=== PATIENT | female | born 1980 | race Caucasian/White ===

== ENCOUNTER 2020-12-18 14:44 | Outpatient (CLI) | payer BC ==
--- NOTE | 2020-12-18 17:36 | ULT ---
TRANSABDOMINAL AND TRANSVAGINAL PELVIC ULTRASOUND: 12/18/20 INDICATION: History of irregular menstrual periods. TECHNIQUE: Ly scale, color Doppler with spectral Doppler images were obtained of the pelvis via a transabdomin al and transvaginal approach. FINDINGS: The uterus measures 8.1 x 4.1 x 4.9 cm. Endometrial stripe measures 5 mm. there are multiple small Na bothian cysts within the cervix. The right ovary measures 2.5 x 1.8 x 2 cm. left ovary measured 1.3 x 3.5 x 1.3 cm. There is a small 5 mm follicular cyst within the left ovary. There is a small 7 mm fol licular cyst within the right ovary. There is normal flow to both ovaries. No free fluid is evident. IMPRESSION: 1. No acute sonographic abnormality in the pelvis. 2. Nabothian cysts of the cervix. POS: BH
== END 2020-12-18 14:45 | disposition home or self-care (01) ==
LOC: BICULT 14:44
PROVIDERS: ATTEND Family Medicine
DX: N92.6 Irregular menstruation, unspecified (principal); N88.8 Other specified noninflammatory disorders of cervix uteri
CPT/HCPCS: 76856

== ENCOUNTER → 2023-04-10 | Day surgery (SDC) | payer BC ==
[~2023-04-10] MED LIST: Oxymetazoline HCl 0.05% (30 ML BOT) ONE
== END ==
LOC: SDC 12:39
PROVIDERS: ATTEND Surgery
DX: K21.9 Gastro-esophageal reflux disease without esophagitis (principal); K44.9 Diaphragmatic hernia without obstruction or gangrene; Z79.899 Other long term (current) drug therapy
CPT/HCPCS: 91010

== ENCOUNTER 2023-05-01 13:45 | Outpatient (CLI) | payer BC | END 2023-05-01 13:46 | disposition home or self-care (01) | LOC: SCSRAD 13:45 | PROVIDERS: ATTEND Family Medicine | DX: R06.2 Wheezing (principal); K44.9 Diaphragmatic hernia without obstruction or gangrene | CPT/HCPCS: 71046 ==

== ENCOUNTER 2023-05-12 06:00 | Inpatient (IN) | payer BC ==
[2023-05-12] MEDS ORDERED: Lidocaine 1% MPF 2 ML VIAL ONE (06:26)
[2023-05-12] MEDS ORDERED: CEFAZOLIN 2 GM VIAL ONE (06:26)
[2023-05-12] MEDS ORDERED: Sodium Chloride 0.9% 100 ML ONE (06:27)
[2023-05-12] MEDS ORDERED: SUGAMMADEX SODIUM 200 MG/2 ML VIAL ONE (06:50)
[2023-05-12] MEDS ORDERED: fentaNYL 50 mcg/mL 1 mL Vial ONE (06:50)
[2023-05-12] MEDS ORDERED: Famotidine/PF 20 mg/2ml Vial ONE (06:50)
[2023-05-12] MEDS ORDERED: Scopolamine 1.5 mg/72 hour Patch ONE (06:59)
[2023-05-12] MEDS ORDERED: EPINEPHrine 1 MG/ML AMP ONE (07:01)
[2023-05-12] MEDS ORDERED: Bupivacaine 0.25% HCL 30 ML VIAL ONE (07:01)
[2023-05-12] MEDS ORDERED: Ketorolac Tromethamine 30 MG/ML VIAL ONE (07:54)
[2023-05-12] MEDS ORDERED: Rocuronium Bromide 10 MG/ML (10ML VIAL) ONE (07:54)
[2023-05-12] MEDS ORDERED: Lidocaine 1% PF 5 ML VIAL ONE (07:54)
[2023-05-12] MEDS ORDERED: Dexamethasone 20 MG/5 ML VIAL ONE (07:54)
[2023-05-12] MEDS ORDERED: PROPOFOL 200 MG/20 ML VIAL ONE (07:54)
[2023-05-12] MEDS ORDERED: Ondansetron PF 4 MG/2 ML Vial ONE (07:54)
[2023-05-12] MEDS ORDERED: hydrALAZINE 20 MG/ML VIAL SLOW IVP PRN (09:59)
[2023-05-12] MEDS ORDERED: diphenhydrAMINE 50 MG/ML VIAL IVP PRN (09:59)
[2023-05-12] MEDS ORDERED: Ondansetron PF 4 MG/2 ML Vial IVP PRN (09:59)
[2023-05-12] MEDS ORDERED: Dextrose 50% Abboject 50 ML SYRINGE SLOW IVP PRN (09:59)
[2023-05-12] MEDS ORDERED: Promethazine HCl 25 MG/ML VIAL IM PRN ×2 (09:59→10:07)
[2023-05-12] MEDS ORDERED: Morphine 4 MG/ML VIAL SLOW IVP PRN (09:59)
[2023-05-12] MEDS ORDERED: Morphine 2 MG/ML VIAL SLOW IVP PRN (09:59)
[2023-05-12] MEDS ORDERED: Ipratropium/Albuterol 3 ML NEB NEB PRN (09:59)
[2023-05-12] MEDS ORDERED: Dextrose 5% in Water 1,000 ML IV PRN (09:59)
[2023-05-12] MEDS ORDERED: Glucagon 1 MG/ML KIT IM PRN (09:59)
[2023-05-12] MEDS ORDERED: Ondansetron HCl/PF 4 MG/2 ML Vial IVP PRN (10:07)
[2023-05-12] MEDS ORDERED: Meperidine HCl/PF 25 MG/ML VIAL SLOW IVP PRN (10:07)
[2023-05-12 11:47] VITALS: BMI 37.0
[2023-05-12] MEDS: D5 1/2 NS w/20 mEq KCL 1,000 ML IV SCH ×3 (12:16→21:13)
[2023-05-12] MEDS: Ketorolac Tromethamine 30 MG/ML VIAL IVP SCH ×2 (12:16→17:36)
[2023-05-12] MEDS: Hydrocodone-Acetamin 15 ML UDCUP PO PRN ×2 (13:16→17:35)
[2023-05-12] MEDS: CEFAZOLIN 2 GM in Sodium Chloride 0.9% 100 ML IVPB SCH ×2 (14:33→22:15)
[2023-05-12] MEDS ORDERED: Simethicone Chewable 80 MG TAB PO PRN (17:52)
[2023-05-13] MEDS: Ketorolac Tromethamine 30 MG/ML VIAL IVP SCH ×2 (00:02→05:49)
[2023-05-13] MEDS: Hydrocodone-Acetamin 15 ML UDCUP PO PRN ×2 (04:13→15:29)
[2023-05-13] MEDS: D5 1/2 NS w/20 mEq KCL 1,000 ML IV SCH (05:53)
[2023-05-13 06:03] LABS: #Neutrophils 10.7 thou/uL (1.40-6.50); %Basophils 0.2 % (0.0-1.0); %Monocytes 7.3 % (0.0-10.0); Mean Corpuscular HGB CONC 33.1 g/dL (32.0-36.0); Mean Corpuscular Hemoglobin 28.3 pg (27.0-31.0); Mean Corpuscular Volume 85.4 fl (78.0-98.0); Mean Platelet Volume 9.8 fL (7.4-10.4); Platelet Count 261 10x3/uL (130-400); RBC Distribution Width 12.4 % (11.5-14.5); Red Blood Cell (RBC) Count 4.24 mill/uL (4.20-5.40); White Blood Cell (WBC) Count 13.1 10x3/uL (4.8-10.8)
[2023-05-13 06:24] LABS: Anion Gap 11 mmol/L (10-20); BUN (Urea Nitrogen) 7 mg/dL (7.0-18.7); Calc. Creatinine Clearance 144 mL/min (70-130); Calcium 8.7 mg/dL (7.8-10.44); Carbon Dioxide 21 mmol/L (22-29); Chloride 108 mmol/L (98-107); Estimated GFR 97; Glucose 121 mg/dL (70-105); Potassium 4.4 mmol/L (3.5-5.1); Sodium 136 mmol/L (136-145)
[2023-05-13 08:26] VITALS: TEMP 97.7
[2023-05-13] MEDS ORDERED: Pantoprazole 40 MG VIAL IVP SCH (09:00)
[2023-05-13 13:53] VITALS: BP 120/75
== END 2023-05-13 15:40 | disposition home or self-care (01) | DRG 328 ==
LOC: SDC 06:00 → SURG B 09:59
PROVIDERS: ADMIT Surgery; ATTEND Surgery
PROC: 0BQT4ZZ Repair Diaphragm, Percutaneous Endoscopic Approach (ICD-10-PCS; principal; 2023-05-12)
PROC: 0DV44ZZ Restriction of Esophagogastric Junction, Percutaneous Endoscopic Approach (ICD-10-PCS; 2023-05-12)
PROC: 8E0W4CZ Robotic Assisted Procedure of Trunk Region, Percutaneous Endoscopic Approach (ICD-10-PCS; 2023-05-12)
DX: K44.9 Diaphragmatic hernia without obstruction or gangrene (principal); R13.10 Dysphagia, unspecified; K21.9 Gastro-esophageal reflux disease without esophagitis; Z79.899 Other long term (current) drug therapy; Z79.51 Long term (current) use of inhaled steroids
CPT/HCPCS: 36415; 80048; 85025; C9113; J0171; J1100; J1650; J1885; J2405; J2704; J3010; J3480; J3490; S0020; S0028

== ENCOUNTER 2023-09-02 21:00 | Emergency (ER) | payer BC ==
[2023-09-02 21:46] LABS: #Basophils 0.1 thou/uL (0.0-0.2); #Eosinphils 0.3 thou/uL (0.0-0.7); #Monocytes 0.9 thou/uL (0.11-0.59); #Neutrophils 6.9 thou/uL (1.40-6.50); %Basophils 0.8 % (0.0-1.0); %Eosinophils 2.6 % (0.0-10.0); %Lymphocytes 22.8 % (21.0-51.0); %Monocytes 8.3 % (0.0-10.0); %Neutrophils 65.2 % (42.0-75.0); Hematocrit 42.7 % (36.0-47.0); Hemoglobin 14.3 g/dL (12.0-16.0); Mean Corpuscular HGB CONC 33.5 g/dL (32.0-36.0); Mean Corpuscular Hemoglobin 28.5 pg (27.0-31.0); Mean Corpuscular Volume 85.1 fl (78.0-98.0); Mean Platelet Volume 10.1 fL (7.4-10.4); Platelet Count 282 10x3/uL (130-400); RBC Distribution Width 12.2 % (11.5-14.5); Red Blood Cell (RBC) Count 5.02 mill/uL (4.20-5.40); White Blood Cell (WBC) Count 10.6 10x3/uL (4.8-10.8)
[2023-09-02 22:10] LABS: ALT (SGPT) 20 U/L (8-55); AST (SGOT) 20 U/L (5-34); Albumin 4.6 g/dL (3.5-5.0); Alkaline Phosphatase 82 U/L (40-110); Anion Gap 13 mmol/L (10-20); BUN (Urea Nitrogen) 14 mg/dL (7.0-18.7); Bilirubin, Total 0.6 mg/dL (0.2-1.2); Calc. Creatinine Clearance 0 mL/min (70-130); Calcium 9.6 mg/dL (7.8-10.44); Carbon Dioxide 24 mmol/L (22-29); Chloride 108 mmol/L (98-107); Estimated GFR 78; Globulin 3.1 g/dL (2.4-3.5); Glucose 102 mg/dL (70-105); Lipase 59 U/L (8-78); Potassium 4.1 mmol/L (3.5-5.1); Protein, Total 7.7 g/dL (6.0-8.3); Sodium 141 mmol/L (136-145)
[2023-09-02 23:02] LABS: Bilirubin Negative (Negative); Blood, Urine Negative (Negative); Clarity Clear (Clear); Glucose, Urine (Dipstick) Normal (Negative); Ketone, Urine Negative (Negative); Leukocyte Negative Leu/uL (Negative); Nitrite Negative (Negative); Protein, Urine (Dipstick) Negative (Neg-Trace); Specific Gravity, Urine 1.027 (1.002-1.036); Urobilinogen Normal mg/dL (Less than 2); pH, Urine 5.5 (5.0-9.0)
[2023-09-02 23:08] LABS: Pregnancy Test - Urine (BHCG) Negative (Negative); Pregu Control Background? CLEAR/WHITE (CLR/WHITE); Pregu Control Bar Appear? YES (CONTROL BAR); Specific Gravity 1.027 (1.002-1.036)
[2023-09-02 23:10] LABS: Bacteria/HPF 1+ HPF (None Seen); CAUTI Indications for Culture Pelvic or flank pain; Mucous/LPF Rare LPF (<2+); RBC/HPF 0-3 HPF (0-3); Squamous Epithelial 0-3 HPF (0-3); WBC/HPF 0-3 HPF (0-3)
[2023-09-02 23:13] LABS: Urine Culture Reflex No No
[2023-09-02] MEDS ORDERED: Morphine 4 MG/ML VIAL ONE (23:42)
[2023-09-02] MEDS ORDERED: Ondansetron PF 4 MG/2 ML Vial ONE (23:43)
[2023-09-02] MEDS ORDERED: Pantoprazole 40 MG VIAL ONE (23:43)
[2023-09-02] MEDS ORDERED: fentaNYL 50 mcg/mL 1 mL Vial ONE (23:57)
[2023-09-03] MEDS ORDERED: Iopamidol-370 76% 500 ML MDV (1 ML CHARGE) ONE (14:15)
== END 2023-09-03 02:42 | disposition home or self-care (01) ==
LOC: ERS 21:00
DX: K44.9 Diaphragmatic hernia without obstruction or gangrene (principal)
CPT/HCPCS: 36415; 74177; 80053; 81001; 81025; 83690; 85025; 96361; 96374; 96375; C9113; J2270; J2405; J3010; Q9967

== ENCOUNTER 2023-09-03 18:41 | Inpatient (IN) | payer BC ==
[2023-09-03] MEDS ORDERED: Ondansetron PF 4 MG/2 ML Vial ONE (20:22)
[2023-09-03 20:44] LABS: #Basophils 0.1 thou/uL (0.0-0.2); #Eosinphils 0.1 thou/uL (0.0-0.7); #Monocytes 0.7 thou/uL (0.11-0.59); #Neutrophils 8.9 thou/uL (1.40-6.50); %Basophils 0.5 % (0.0-1.0); %Eosinophils 0.7 % (0.0-10.0); %Lymphocytes 15.7 % (21.0-51.0); %Monocytes 6.1 % (0.0-10.0); %Neutrophils 76.7 % (42.0-75.0); Hemoglobin 15.5 g/dL (12.0-16.0); Mean Corpuscular HGB CONC 33.7 g/dL (32.0-36.0); Mean Corpuscular Hemoglobin 28.2 pg (27.0-31.0); Mean Corpuscular Volume 83.6 fl (78.0-98.0); Mean Platelet Volume 10.7 fL (7.4-10.4); Platelet Count 275 10x3/uL (130-400); RBC Distribution Width 12.1 % (11.5-14.5); White Blood Cell (WBC) Count 11.6 10x3/uL (4.8-10.8)
[2023-09-03 21:53] LABS: Albumin 4.6 g/dL (3.5-5.0)
[2023-09-03 21:54] LABS: Chloride 109 mmol/L (98-107); Potassium 4.1 mmol/L (3.5-5.1); Sodium 138 mmol/L (136-145)
[2023-09-03 21:55] LABS: Calcium 9.5 mg/dL (7.8-10.44); Glucose 85 mg/dL (70-105)
[2023-09-03 21:56] LABS: Globulin 3.1 g/dL (2.4-3.5); Protein, Total 7.7 g/dL (6.0-8.3)
[2023-09-03 21:57] LABS: Anion Gap 12 mmol/L (10-20); Carbon Dioxide 21 mmol/L (22-29)
[2023-09-03 21:58] LABS: Alkaline Phosphatase 84 U/L (40-110); Bilirubin, Total 0.8 mg/dL (0.2-1.2)
[2023-09-03 21:59] LABS: Calc. Creatinine Clearance 0 mL/min (70-130); Estimated GFR 100
[2023-09-03 22:00] LABS: BUN (Urea Nitrogen) 10 mg/dL (7.0-18.7)
[2023-09-03 22:01] LABS: ALT (SGPT) 18 U/L (8-55); AST (SGOT) 16 U/L (5-34)
[2023-09-03 22:02] LABS: Lipase 35 U/L (8-78)
[2023-09-03] MEDS ORDERED: Ketorolac Tromethamine 30 MG/ML VIAL ONE (22:20)
[2023-09-03] MEDS ORDERED: Pantoprazole 40 MG VIAL ONE (22:20)
[2023-09-03] MEDS ORDERED: Promethazine HCl 12.5 MG in Sodium Chloride 0.9% 50 ML IVPB PRN (22:32)
[2023-09-03] MEDS ORDERED: Ondansetron PF 4 MG/2 ML Vial IVP PRN (22:45)
[2023-09-03] MEDS ORDERED: Ondansetron ODT 4 MG TAB SL PRN (22:45)
[2023-09-04] MEDS: Sodium Chloride 0.9% 1,000 ML IV SCH ×6 (00:01→21:05)
[2023-09-04] MEDS ORDERED: CEFAZOLIN 2 GM in Sodium Chloride 0.9% 100 ML IVPB SCH (07:30)
[2023-09-04] MEDS ORDERED: Sodium Chloride 0.9% 500 ML IV SCH (07:30)
[2023-09-04] MEDS ORDERED: Midazolam HCl 2 mg/2 ml Vial ONE ×2 (11:43→11:45)
[2023-09-04] MEDS ORDERED: Dexmedetomidine 200 MCG/2 ML VIAL ONE (11:44)
[2023-09-04] MEDS ORDERED: fentaNYL PF 100 MCG/2 ML SYRINGE ONE ×3 (11:45→15:57)
[2023-09-04] MEDS ORDERED: HYDROmorphone 0.5 MG/0.5 ML SYRINGE ONE (11:45)
[2023-09-04] MEDS ORDERED: EPINEPHrine 1 MG/ML VIAL ONE (11:55)
[2023-09-04] MEDS ORDERED: Bupivacaine 0.25% HCL 30 ML VIAL ONE (11:55)
[2023-09-04] MEDS ORDERED: Sodium Chloride 0.9% 100 ML ONE (12:06)
[2023-09-04] MEDS ORDERED: CEFAZOLIN 2 GM VIAL ONE (12:06)
[2023-09-04] MEDS ORDERED: Ondansetron PF 4 MG/2 ML Vial ONE ×3 (12:15→16:13)
[2023-09-04] MEDS ORDERED: Dexamethasone 20 MG/5 ML VIAL ONE (12:15)
[2023-09-04] MEDS ORDERED: Vecuronium 10 MG VIAL ONE (12:15)
[2023-09-04] MEDS ORDERED: Lidocaine 1% PF 5 ML VIAL ONE (12:15)
[2023-09-04] MEDS ORDERED: PROPOFOL 200 MG/20 ML VIAL ONE (12:15)
[2023-09-04] MEDS ORDERED: Metoprolol Tartrate 5 MG/5 ML VIAL ONE (12:15)
[2023-09-04] MEDS ORDERED: Ketorolac Tromethamine 30 MG/ML VIAL ONE (12:15)
[2023-09-04] MEDS ORDERED: Rocuronium Bromide 10 MG/ML (10ML VIAL) ONE (12:15)
[2023-09-04] MEDS ORDERED: Albumin 5% 1,000 ML ONE (14:52)
[2023-09-04] MEDS ORDERED: SUGAMMADEX SODIUM 200 MG/2 ML VIAL ONE (15:56)
[2023-09-04] MEDS ORDERED: diphenhydrAMINE 50 MG/ML VIAL IVP PRN (17:02)
[2023-09-04] MEDS ORDERED: Ondansetron PF 4 MG/2 ML Vial IVP PRN (17:02)
[2023-09-04] MEDS ORDERED: Promethazine HCl 25 MG/ML VIAL IM PRN ×3 (17:02→17:37)
[2023-09-04] MEDS ORDERED: Naloxone HCl 0.4 mg/ml Vial IV PRN (17:02)
[2023-09-04] MEDS ORDERED: diphenhydrAMINE 50 MG/ML VIAL IM PRN (17:02)
[2023-09-04] MEDS ORDERED: HYDROmorphone 2 MG/ML VIAL SLOW IVP PRN (17:03)
[2023-09-04] MEDS ORDERED: Ondansetron HCl/PF 4 MG/2 ML Vial IVP PRN (17:03)
[2023-09-04] MEDS ORDERED: Meperidine HCl/PF 25 MG/ML VIAL SLOW IVP PRN (17:03)
[2023-09-04] MEDS ORDERED: Morphine Sulfate 2 MG/ML SYRINGE SLOW IVP PRN (17:03)
[2023-09-04] MEDS ORDERED: Communication Order-Pharmacy FS SCH (17:15)
[2023-09-04] MEDS ORDERED: hydrALAZINE 20 MG/ML VIAL SLOW IVP PRN (17:37)
[2023-09-04] MEDS ORDERED: Dextrose 5% in Water 1,000 ML IV PRN (17:37)
[2023-09-04] MEDS ORDERED: Glucagon 1 MG/ML KIT IM PRN (17:37)
[2023-09-04] MEDS ORDERED: Dextrose 50% Abboject 50 ML SYRINGE SLOW IVP PRN (17:37)
[2023-09-04 18:21] LABS: Mean Corpuscular HGB CONC 33.1 g/dL (32.0-36.0); Mean Corpuscular Hemoglobin 28.8 pg (27.0-31.0); Mean Platelet Volume 10.4 fL (7.4-10.4); Platelet Count 201 10x3/uL (130-400); RBC Distribution Width 11.9 % (11.5-14.5); Red Blood Cell (RBC) Count 3.58 mill/uL (4.20-5.40); White Blood Cell (WBC) Count 19.7 10x3/uL (4.8-10.8)
[2023-09-04 18:25] LABS: Hematocrit 31.1 % (36.0-47.0); Hemoglobin 10.3 g/dL (12.0-16.0)
[2023-09-04 18:26] LABS: Mean Corpuscular Volume 86.9 fl (78.0-98.0)
[2023-09-04] MEDS: Famotidine/PF 20 mg/2ml Vial SLOW IVP SCH (20:40)
[2023-09-05] MEDS: Sodium Chloride 0.9% 1,000 ML IV SCH ×3 (02:22→09:40)
[2023-09-05 05:01] LABS: #Basophils 0.1 thou/uL (0.0-0.2); #Monocytes 1.6 thou/uL (0.11-0.59); #Neutrophils 24.3 thou/uL (1.40-6.50); %Basophils 0.2 % (0.0-1.0); %Eosinophils 0.1 % (0.0-10.0); %Lymphocytes 3.5 % (21.0-51.0); %Monocytes 6.1 % (0.0-10.0); %Neutrophils 89.8 % (42.0-75.0); Hematocrit 28.5 % (36.0-47.0); Hemoglobin 9.3 g/dL (12.0-16.0); Mean Corpuscular HGB CONC 32.6 g/dL (32.0-36.0); Mean Corpuscular Hemoglobin 28.3 pg (27.0-31.0); Mean Corpuscular Volume 86.6 fl (78.0-98.0); Mean Platelet Volume 10.8 fL (7.4-10.4); Platelet Count 223 10x3/uL (130-400); RBC Distribution Width 12.2 % (11.5-14.5); Red Blood Cell (RBC) Count 3.29 mill/uL (4.20-5.40)
[2023-09-05 05:36] LABS: ALT (SGPT) 40 U/L (8-55); AST (SGOT) 48 U/L (5-34); Albumin 3.9 g/dL (3.5-5.0); Alkaline Phosphatase 46 U/L (40-110); Anion Gap 12 mmol/L (10-20); BUN (Urea Nitrogen) 10 mg/dL (7.0-18.7); Bilirubin, Total 1.3 mg/dL (0.2-1.2); Calc. Creatinine Clearance 146 mL/min (70-130); Calcium 7.9 mg/dL (7.8-10.44); Carbon Dioxide 21 mmol/L (22-29); Chloride 110 mmol/L (98-107); Estimated GFR 103; Globulin 1.7 g/dL (2.4-3.5); Glucose 132 mg/dL (70-105); Potassium 4.4 mmol/L (3.5-5.1); Protein, Total 5.6 g/dL (6.0-8.3); Sodium 139 mmol/L (136-145)
[2023-09-05] MEDS: HYDROmorphone/PF 10 MG in Sodium Chloride 0.9% 99 ML IV PRN (07:25)
[2023-09-05] MEDS ORDERED: PNEUMOC 20-VAL CONJ-DIP CRM/PF 0.5 ML SYRINGE IM ONE (07:33)
[2023-09-05] MEDS ORDERED: Mening Vac A,C,Y,W-135 Dip/PF (MENVEO) IM ONE (07:33)
[2023-09-05] MEDS ORDERED: Haemoph B Poly Conj-Tet Tox/PF 10 MCG/0.5 ML VIAL IM ONE (07:33)
[2023-09-05] MEDS ORDERED: Sodium Chloride 0.9% 500 ML IV SCH (07:45)
[2023-09-05] MEDS: Ondansetron PF 4 MG/2 ML Vial IVP PRN (08:23)
[2023-09-05] MEDS ORDERED: Piperacillin/Tazobactam 3.375 GM in Sodium Chloride 0.9% 100 ML IVPB SCH ×2 (10:00→10:30)
[2023-09-05] MEDS: Famotidine/PF 20 mg/2ml Vial SLOW IVP SCH ×2 (10:21→21:42)
[2023-09-05] MEDS ORDERED: Rocuronium Bromide 10 MG/ML (10ML VIAL) ONE ×2 (12:18→13:27)
[2023-09-05] MEDS ORDERED: Lidocaine 2% PF 5 ML VIAL ONE (12:18)
[2023-09-05] MEDS ORDERED: PROPOFOL 20 ML ONE (12:18)
[2023-09-05] MEDS ORDERED: Midazolam HCl 2 mg/2 ml Vial ONE (12:18)
[2023-09-05] MEDS ORDERED: Fentanyl 250 MCG/5 ML VIAL ONE (12:18)
[2023-09-05] MEDS ORDERED: Piperacillin/Tazobactam 3.375 GM VIAL ONE (13:06)
[2023-09-05] MEDS ORDERED: Sodium Chloride 0.9% 100 ML ONE (13:06)
[2023-09-05] MEDS ORDERED: PROPOFOL 200 MG/20 ML VIAL ONE (13:27)
[2023-09-05] MEDS ORDERED: Ondansetron PF 4 MG/2 ML Vial ONE (13:27)
[2023-09-05] MEDS ORDERED: Metoprolol Tartrate 5 MG/5 ML VIAL ONE ×2 (13:27→13:53)
[2023-09-05] MEDS ORDERED: Dexamethasone 20 MG/5 ML VIAL ONE (13:27)
[2023-09-05] MEDS ORDERED: Lidocaine 1% PF 5 ML VIAL ONE (13:27)
[2023-09-05] MEDS ORDERED: Ketamine In 0.9 % NaCl 50 MG/5 ML SYRINGE ONE (13:39)
[2023-09-05] MEDS ORDERED: Methylene Blue 50 MG/10 ML AMPUL ONE (14:00)
[2023-09-05] MEDS ORDERED: SUGAMMADEX SODIUM 200 MG/2 ML VIAL ONE ×2 (14:13→14:17)
[2023-09-05] MEDS ORDERED: Ondansetron HCl/PF 4 MG/2 ML Vial IVP PRN (14:23)
[2023-09-05] MEDS ORDERED: HYDROmorphone 2 MG/ML VIAL SLOW IVP PRN (14:23)
[2023-09-05] MEDS ORDERED: Promethazine HCl 25 MG/ML VIAL IM PRN (14:23)
[2023-09-05] MEDS ORDERED: HYDROmorphone 2 MG/ML VIAL ONE (15:17)
[2023-09-05] MEDS ORDERED: fentaNYL 50 mcg/mL 1 mL Vial ONE (16:19)
[2023-09-05] MEDS ORDERED: Metoprolol Tartrate 5 MG/5 ML VIAL IVP PRN (20:36)
[2023-09-05] MEDS ORDERED: Metoprolol Tartrate 5 MG/5 ML VIAL IVP SCH (20:45)
[2023-09-06] MEDS: Sodium Chloride 0.9% 1,000 ML IV SCH ×3 (00:05→17:14)
[2023-09-06] MEDS ORDERED: Electrolyte Replacement Protocol 1 EACH FS SCH (04:30)
[2023-09-06] MEDS: HYDROmorphone/PF 10 MG in Sodium Chloride 0.9% 99 ML IV PRN ×2 (04:30→15:53)
[2023-09-06] MEDS ORDERED: Metoprolol Tartrate 5 MG/5 ML VIAL IVP SCH ×2 (04:30→09:00)
[2023-09-06 04:35] LABS: Hematocrit 24.5 % (36.0-47.0); Hemoglobin 7.9 g/dL (12.0-16.0); Mean Corpuscular HGB CONC 32.2 g/dL (32.0-36.0); Mean Corpuscular Hemoglobin 28.7 pg (27.0-31.0); Mean Corpuscular Volume 89.1 fl (78.0-98.0); Mean Platelet Volume 10.6 fL (7.4-10.4); Platelet Count 254 10x3/uL (130-400); RBC Distribution Width 13.2 % (11.5-14.5); Red Blood Cell (RBC) Count 2.75 mill/uL (4.20-5.40)
[2023-09-06 04:47] LABS: Delete Auto Diff?? YES; Manual Diff?? YES
[2023-09-06 05:19] LABS: Anion Gap 10 mmol/L (10-20); BUN (Urea Nitrogen) 11 mg/dL (7.0-18.7); Calc. Creatinine Clearance 157 mL/min (70-130); Carbon Dioxide 21 mmol/L (22-29); Chloride 116 mmol/L (98-107); Estimated GFR 109; Glucose 95 mg/dL (70-105); Magnesium 1.8 mg/dL (1.6-2.6); Sodium 143 mmol/L (136-145)
[2023-09-06 06:32] LABS: Band 4 % (5-11); CellaVision Operator ID lab.sh2; Large Platelets 2.6 % (0-5); Lymphocytes 4 % (21-51); Neutrophil 92 % (42-75); Platelet Adequacy Comment Platelets Normal; Polychromasia SLIGHT = 2-3 cells HPF (0-2); Smudge Cells 4.3 %; Total Cell Count 116
[2023-09-06] MEDS ORDERED: Magnesium 2 GM/50 ML(in water) 2 GM in Premix 1 BAG IVPB SCH (08:00)
[2023-09-06] MEDS: Famotidine/PF 20 mg/2ml Vial SLOW IVP SCH ×2 (10:41→20:50)
[2023-09-06 12:32] LABS: Hematocrit 23.2 % (36.0-47.0); Hemoglobin 7.6 g/dL (12.0-16.0); Mean Corpuscular HGB CONC 32.8 g/dL (32.0-36.0); Mean Corpuscular Hemoglobin 29.6 pg (27.0-31.0); Mean Corpuscular Volume 90.3 fl (78.0-98.0); Mean Platelet Volume 10.2 fL (7.4-10.4); Platelet Count 266 10x3/uL (130-400); RBC Distribution Width 13.3 % (11.5-14.5); Red Blood Cell (RBC) Count 2.57 mill/uL (4.20-5.40); White Blood Cell (WBC) Count 30.2 10x3/uL (4.8-10.8)
[2023-09-06 12:35] LABS: Delete Auto Diff?? YES; Manual Diff?? YES
[2023-09-06 12:42] VITALS: BMI 35.9
[2023-09-06 13:02] LABS: Band 22 % (5-11); CellaVision Operator ID LAB.MJL; Lymphocytes 5 % (21-51); Monocytes 6 % (0-10); Neutrophil 67 % (42-75); Platelet Adequacy Comment Platelets Normal; Polychromasia SLIGHT = 2-3 cells HPF (0-2); Total Cell Count 101
[2023-09-06 14:30] LABS: Hematocrit 23.9 % (36.0-47.0); Hemoglobin 7.6 g/dL (12.0-16.0)
[2023-09-06] MEDS: Metoprolol Tartrate 5 MG/5 ML VIAL IVP SCH (17:54)
[2023-09-06] MEDS: Piperacillin/Tazobactam 3.375 GM in Sodium Chloride 0.9% 100 ML IVPB SCH (18:06)
[2023-09-06] MEDS: D5W-AA 4.25% with LYTES 1,000 ML IV SCH (18:43)
[2023-09-06 19:14] LABS: Hematocrit 27.3 % (36.0-47.0)
[2023-09-07] MEDS: Metoprolol Tartrate 5 MG/5 ML VIAL IVP SCH ×5 (00:28→21:34)
[2023-09-07 01:17] LABS: Hematocrit 28.7 % (36.0-47.0); Hemoglobin 8.9 g/dL (12.0-16.0)
[2023-09-07] MEDS: Ipratropium/Albuterol 3 ML NEB NEB PRN ×2 (03:00→11:50)
[2023-09-07] MEDS: Piperacillin/Tazobactam 3.375 GM in Sodium Chloride 0.9% 100 ML IVPB SCH ×3 (03:12→17:19)
[2023-09-07] MEDS: D5W-AA 4.25% with LYTES 1,000 ML IV SCH ×4 (04:59→21:47)
[2023-09-07 07:03] LABS: Hematocrit 24.3 % (36.0-47.0)
[2023-09-07] MEDS: HYDROmorphone/PF 10 MG in Sodium Chloride 0.9% 99 ML IV PRN ×2 (07:58→22:52)
[2023-09-07] MEDS ORDERED: Furosemide 100 MG in Sodium Chloride 0.9% 90 ML IVPB SCH (08:00)
[2023-09-07] MEDS ORDERED: Furosemide 100 MG, Admixture Fee 1 EACH in Sodium Chloride 0.9% 90 ML IVPB SCH (08:15)
[2023-09-07] MEDS ORDERED: Metoprolol Tartrate 5 MG/5 ML VIAL IVP SCH (08:22)
[2023-09-07] MEDS: Famotidine/PF 20 mg/2ml Vial SLOW IVP SCH ×2 (09:12→21:34)
[2023-09-07 12:55] LABS: Hematocrit 25.3 % (36.0-47.0); Hemoglobin 8.2 g/dL (12.0-16.0)
[2023-09-07] MEDS ORDERED: Furosemide 20 MG/2 ML VIAL SLOW IVP SCH (13:45)
[2023-09-07 20:46] LABS: Hematocrit 24.3 % (36.0-47.0)
[2023-09-07] MEDS: Sodium Chloride 0.9% 1,000 ML IV SCH (21:33)
[2023-09-08] MEDS: Piperacillin/Tazobactam 3.375 GM in Sodium Chloride 0.9% 100 ML IVPB SCH ×3 (03:19→18:00)
[2023-09-08] MEDS: Metoprolol Tartrate 5 MG/5 ML VIAL IVP SCH ×2 (03:19→09:56)
[2023-09-08 04:14] LABS: #Basophils 0.1 thou/uL (0.0-0.2); #Eosinphils 0.4 thou/uL (0.0-0.7); #Neutrophils 18.2 thou/uL (1.40-6.50); %Basophils 0.4 % (0.0-1.0); %Eosinophils 1.5 % (0.0-10.0); %Monocytes 8.7 % (0.0-10.0); %Neutrophils 78.5 % (42.0-75.0); Hematocrit 26.1 % (36.0-47.0); Hemoglobin 8.5 g/dL (12.0-16.0); Mean Corpuscular HGB CONC 32.6 g/dL (32.0-36.0); Mean Corpuscular Hemoglobin 28.8 pg (27.0-31.0); Mean Corpuscular Volume 88.5 fl (78.0-98.0); Mean Platelet Volume 9.9 fL (7.4-10.4); Platelet Count 399 10x3/uL (130-400); RBC Distribution Width 13.5 % (11.5-14.5); Red Blood Cell (RBC) Count 2.95 mill/uL (4.20-5.40); White Blood Cell (WBC) Count 23.2 10x3/uL (4.8-10.8)
[2023-09-08 04:46] LABS: Anion Gap 14 mmol/L (10-20); BUN (Urea Nitrogen) 12 mg/dL (7.0-18.7); Calc. Creatinine Clearance 184 mL/min (70-130); Calcium 8.3 mg/dL (7.8-10.44); Carbon Dioxide 25 mmol/L (22-29); Chloride 107 mmol/L (98-107); Estimated GFR 114; Glucose 97 mg/dL (70-105); Potassium 3.1 mmol/L (3.5-5.1); Sodium 143 mmol/L (136-145)
[2023-09-08] MEDS: Potassium Chloride 20 MEQ in Premix 1 BAG IVPB SCH ×2 (08:13→09:57)
[2023-09-08] MEDS: Famotidine/PF 20 mg/2ml Vial SLOW IVP SCH ×2 (08:23→20:49)
[2023-09-08] MEDS: Ipratropium/Albuterol 3 ML NEB NEB PRN (10:33)
[2023-09-08] MEDS: D5W-AA 4.25% with LYTES 1,000 ML IV SCH ×3 (12:52→17:34)
[2023-09-08] MEDS ORDERED: Furosemide 20 MG TAB PO SCH (13:15)
[2023-09-08] MEDS: HYDROmorphone/PF 10 MG in Sodium Chloride 0.9% 99 ML IV PRN (15:30)
[2023-09-09] MEDS: Piperacillin/Tazobactam 3.375 GM in Sodium Chloride 0.9% 100 ML IVPB SCH ×3 (01:59→18:10)
[2023-09-09 04:40] LABS: #Basophils 0.2 thou/uL (0.0-0.2); #Eosinphils 0.7 thou/uL (0.0-0.7); #Monocytes 2.3 thou/uL (0.11-0.59); #Neutrophils 14.5 thou/uL (1.40-6.50); %Basophils 0.7 % (0.0-1.0); %Eosinophils 3.7 % (0.0-10.0); %Lymphocytes 10.8 % (21.0-51.0); %Monocytes 11.3 % (0.0-10.0); %Neutrophils 71.8 % (42.0-75.0); Hemoglobin 9.1 g/dL (12.0-16.0); Mean Corpuscular HGB CONC 32.5 g/dL (32.0-36.0); Mean Corpuscular Hemoglobin 28.6 pg (27.0-31.0); Mean Corpuscular Volume 88.1 fl (78.0-98.0); Mean Platelet Volume 9.7 fL (7.4-10.4); Platelet Count 462 10x3/uL (130-400); RBC Distribution Width 13.2 % (11.5-14.5); Red Blood Cell (RBC) Count 3.18 mill/uL (4.20-5.40); White Blood Cell (WBC) Count 20.2 10x3/uL (4.8-10.8)
[2023-09-09 05:00] LABS: Anion Gap 11 mmol/L (10-20); BUN (Urea Nitrogen) 7 mg/dL (7.0-18.7); Calc. Creatinine Clearance 187 mL/min (70-130); Calcium 8.3 mg/dL (7.8-10.44); Carbon Dioxide 27 mmol/L (22-29); Chloride 103 mmol/L (98-107); Estimated GFR 114; Glucose 88 mg/dL (70-105); Potassium 3.1 mmol/L (3.5-5.1); Sodium 138 mmol/L (136-145)
[2023-09-09] MEDS: Potassium Chloride 20 MEQ in Premix 1 BAG IVPB SCH ×2 (08:05→15:43)
[2023-09-09] MEDS: Famotidine/PF 20 mg/2ml Vial SLOW IVP SCH ×2 (08:06→20:29)
[2023-09-09] MEDS: HYDROmorphone/PF 10 MG in Sodium Chloride 0.9% 99 ML IV PRN (12:35)
[2023-09-09] MEDS ORDERED: Potassium Chloride 20 MEQ in Premix 1 BAG IVPB SCH (15:30)
[2023-09-09] MEDS: diphenhydrAMINE 25 MG CAP PO PRN (20:37)
[2023-09-10] MEDS: Piperacillin/Tazobactam 3.375 GM in Sodium Chloride 0.9% 100 ML IVPB SCH ×3 (02:08→17:44)
[2023-09-10] MEDS: HYDROmorphone/PF 10 MG in Sodium Chloride 0.9% 99 ML IV PRN ×2 (03:39→17:54)
[2023-09-10 06:40] LABS: Hematocrit 30.8 % (36.0-47.0); Hemoglobin 10.1 g/dL (12.0-16.0); Mean Corpuscular HGB CONC 32.8 g/dL (32.0-36.0); Mean Corpuscular Volume 88.5 fl (78.0-98.0); Mean Platelet Volume 9.7 fL (7.4-10.4); Platelet Count 584 10x3/uL (130-400); RBC Distribution Width 13.4 % (11.5-14.5); Red Blood Cell (RBC) Count 3.48 mill/uL (4.20-5.40); White Blood Cell (WBC) Count 23.3 10x3/uL (4.8-10.8)
[2023-09-10 07:09] LABS: ALT (SGPT) 58 U/L (8-55); AST (SGOT) 42 U/L (5-34); Albumin 3.4 g/dL (3.5-5.0); Alkaline Phosphatase 207 U/L (40-110); Anion Gap 17 mmol/L (10-20); BUN (Urea Nitrogen) 7 mg/dL (7.0-18.7); Bilirubin, Total 2.7 mg/dL (0.2-1.2); Calc. Creatinine Clearance 156 mL/min (70-130); Calcium 8.8 mg/dL (7.8-10.44); Carbon Dioxide 25 mmol/L (22-29); Chloride 100 mmol/L (98-107); Estimated GFR 109; Globulin 3.3 g/dL (2.4-3.5); Glucose 94 mg/dL (70-105); Potassium 3.5 mmol/L (3.5-5.1); Protein, Total 6.7 g/dL (6.0-8.3); Sodium 138 mmol/L (136-145)
[2023-09-10 07:38] LABS: Delete Auto Diff?? YES; Manual Diff?? YES
[2023-09-10] MEDS ORDERED: Potassium Bicarbonate/Cit Ac 20 MEQ TAB PO SCH (08:00)
[2023-09-10 08:56] LABS: Band 4 % (5-11); Eosinophils 1 % (0-10); Lymphocytes 5 % (21-51); Monocytes 6 % (0-10); Neutrophil 83 % (42-75); Nucleated RBC (Manual Ct) 5 % (0)
[2023-09-10 08:57] LABS: RBC Morph Comment Within Normal Limits
[2023-09-10 08:58] LABS: Platelet Adequacy Comment Appears Increased
[2023-09-10] MEDS: Famotidine/PF 20 mg/2ml Vial SLOW IVP SCH ×2 (09:39→20:21)
[2023-09-10] MEDS: diphenhydrAMINE 25 MG CAP PO PRN (11:43)
[2023-09-10 12:01] LABS: Potassium 3.7 mmol/L (3.5-5.1)
[2023-09-10] MEDS ORDERED: Metoprolol Tartrate 25 MG TAB PO SCH (19:15)
[2023-09-11] MEDS: Piperacillin/Tazobactam 3.375 GM in Sodium Chloride 0.9% 100 ML IVPB SCH ×3 (02:00→17:10)
[2023-09-11 05:10] LABS: Hematocrit 26.2 % (36.0-47.0); Hemoglobin 8.5 g/dL (12.0-16.0); Mean Corpuscular HGB CONC 32.4 g/dL (32.0-36.0); Mean Corpuscular Hemoglobin 28.8 pg (27.0-31.0); Mean Corpuscular Volume 88.8 fl (78.0-98.0); Mean Platelet Volume 9.8 fL (7.4-10.4); Platelet Count 556 10x3/uL (130-400); RBC Distribution Width 13.6 % (11.5-14.5); Red Blood Cell (RBC) Count 2.95 mill/uL (4.20-5.40)
[2023-09-11 05:20] LABS: Manual Diff?? YES
[2023-09-11 05:21] LABS: Delete Auto Diff?? YES
[2023-09-11 05:52] LABS: Band 1 % (5-11); CellaVision Operator ID lab.abc; Eosinophils 1 % (0-10); Large Platelets 2.9 % (0-5); Lymphocytes 3 % (21-51); Metamyelocyte 1 % (0-0); Monocytes 11 % (0-10); Myelocyte 2 % (0-0); Neutrophil 82 % (42-75); Nucleated RBC (Manual Ct) 2 % (0); Platelet Adequacy Comment Platelets Increased; Polychromasia MODERATE = 3-4 cells HPF (0-2); Smudge Cells 8.7 %; Total Cell Count 104
[2023-09-11 06:01] LABS: ALT (SGPT) 47 U/L (8-55); AST (SGOT) 38 U/L (5-34); Albumin 2.9 g/dL (3.5-5.0); Alkaline Phosphatase 193 U/L (40-110); Anion Gap 14 mmol/L (10-20); BUN (Urea Nitrogen) 7 mg/dL (7.0-18.7); Bilirubin, Total 1.8 mg/dL (0.2-1.2); Calc. Creatinine Clearance 166 mL/min (70-130); Calcium 8.3 mg/dL (7.8-10.44); Carbon Dioxide 26 mmol/L (22-29); Chloride 101 mmol/L (98-107); Estimated GFR 111; Glucose 97 mg/dL (70-105); Potassium 3.3 mmol/L (3.5-5.1); Protein, Total 5.9 g/dL (6.0-8.3); Sodium 138 mmol/L (136-145)
[2023-09-11] MEDS ORDERED: traMADol HCl 50 MG TAB PO PRN (08:55)
[2023-09-11] MEDS ORDERED: Morphine 2 MG/ML VIAL SLOW IVP PRN (08:57)
[2023-09-11] MEDS ORDERED: Potassium Chloride 20 MEQ TAB PO SCH (09:00)
[2023-09-11] MEDS: Famotidine/PF 20 mg/2ml Vial SLOW IVP SCH ×2 (09:20→21:57)
[2023-09-11] MEDS ORDERED: Iopamidol-370 76% 500 ML MDV (1 ML CHARGE) ONE (10:56)
[2023-09-11] MEDS: HYDROcodone/Acetaminophen 10/325 mg Tablet PO PRN ×4 (12:06→21:57)
[2023-09-12] MEDS: traMADol HCl 50 MG TAB PO PRN ×2 (02:20→16:55)
[2023-09-12] MEDS: Piperacillin/Tazobactam 3.375 GM in Sodium Chloride 0.9% 100 ML IVPB SCH ×3 (02:21→18:00)
[2023-09-12] MEDS: HYDROcodone/Acetaminophen 10/325 mg Tablet PO PRN ×4 (04:27→22:18)
[2023-09-12 05:23] LABS: Hematocrit 25.9 % (36.0-47.0); Hemoglobin 8.4 g/dL (12.0-16.0); Mean Corpuscular HGB CONC 32.4 g/dL (32.0-36.0); Mean Corpuscular Hemoglobin 28.9 pg (27.0-31.0); Mean Platelet Volume 9.9 fL (7.4-10.4); Platelet Count 669 10x3/uL (130-400); RBC Distribution Width 13.8 % (11.5-14.5); Red Blood Cell (RBC) Count 2.91 mill/uL (4.20-5.40); White Blood Cell (WBC) Count 25.2 10x3/uL (4.8-10.8)
[2023-09-12 06:08] LABS: Anion Gap 16 mmol/L (10-20); BUN (Urea Nitrogen) 5 mg/dL (7.0-18.7); Calc. Creatinine Clearance 166 mL/min (70-130); Calcium 8.4 mg/dL (7.8-10.44); Carbon Dioxide 24 mmol/L (22-29); Chloride 103 mmol/L (98-107); Estimated GFR 111; Glucose 85 mg/dL (70-105); Potassium 3.8 mmol/L (3.5-5.1); Sodium 139 mmol/L (136-145)
[2023-09-12 06:10] LABS: Delete Auto Diff?? YES; Manual Diff?? YES
[2023-09-12 07:16] LABS: Band 9 % (5-11); CellaVision Operator ID LAB.GE; Eosinophils 4 % (0-10); Hypochromia SLIGHT = 6-15 cells HPF (0-5); Large Platelets 1.7 % (0-5); Lymphocytes 3 % (21-51); Metamyelocyte 1 % (0-0); Monocytes 10 % (0-10); Myelocyte 1 % (0-0); Neutrophil 73 % (42-75); Nucleated RBC (Manual Ct) 3 % (0); Platelet Adequacy Comment Platelets Increased; Polychromasia MODERATE = 3-4 cells HPF (0-2); Total Cell Count 118
[2023-09-12] MEDS ORDERED: VANCO/ABX IVPB PRN (08:19)
[2023-09-12] MEDS ORDERED: Vancomycin 1 GM in Sodium Chloride 0.9% 250 ML 250 ML IVPB SCH (09:00)
[2023-09-12] MEDS: Famotidine/PF 20 mg/2ml Vial SLOW IVP SCH ×2 (09:12→20:31)
[2023-09-12] MEDS: Nystatin 500,000 UNITS/5 ML UDCUP SSW SCH ×4 (09:13→20:32)
[2023-09-12] MEDS: Vancomycin 1 GM in Premix 1 BAG IVPB SCH ×2 (10:16→17:04)
[2023-09-12] MEDS: Ondansetron PF 4 MG/2 ML Vial IVP PRN (16:59)
[2023-09-12] MEDS ORDERED: Morphine 4 MG/ML VIAL SLOW IVP PRN (17:16)
[2023-09-13] MEDS: Vancomycin 1 GM in Premix 1 BAG IVPB SCH (01:17)
[2023-09-13] MEDS: Piperacillin/Tazobactam 3.375 GM in Sodium Chloride 0.9% 100 ML IVPB SCH ×3 (02:23→18:33)
[2023-09-13] MEDS: HYDROcodone/Acetaminophen 10/325 mg Tablet PO PRN ×4 (04:11→22:42)
[2023-09-13 05:08] LABS: Hematocrit 27.9 % (36.0-47.0); Mean Corpuscular HGB CONC 32.3 g/dL (32.0-36.0); Mean Corpuscular Hemoglobin 28.9 pg (27.0-31.0); Mean Corpuscular Volume 89.7 fl (78.0-98.0); Mean Platelet Volume 9.7 fL (7.4-10.4); Platelet Count 761 10x3/uL (130-400); RBC Distribution Width 14.1 % (11.5-14.5); Red Blood Cell (RBC) Count 3.11 mill/uL (4.20-5.40); White Blood Cell (WBC) Count 30.2 10x3/uL (4.8-10.8)
[2023-09-13 05:11] LABS: Delete Auto Diff?? YES; Manual Diff?? YES
[2023-09-13 05:44] LABS: Anion Gap 16 mmol/L (10-20); BUN (Urea Nitrogen) 7 mg/dL (7.0-18.7); Calc. Creatinine Clearance 111 mL/min (70-130); Calcium 8.4 mg/dL (7.8-10.44); Carbon Dioxide 24 mmol/L (22-29); Chloride 102 mmol/L (98-107); Estimated GFR 74; Glucose 77 mg/dL (70-105); Potassium 3.6 mmol/L (3.5-5.1); Sodium 138 mmol/L (136-145)
[2023-09-13 05:47] LABS: Band 3 % (5-11); CellaVision Operator ID lab.abc; Eosinophils 1 % (0-10); Large Platelets 5.9 % (0-5); Lymphocytes 4 % (21-51); Monocytes 5 % (0-10); Neutrophil 87 % (42-75); Nucleated RBC (Manual Ct) 3 % (0); Platelet Adequacy Comment Platelets Increased; Polychromasia MODERATE = 3-4 cells HPF (0-2); Total Cell Count 101
[2023-09-13] MEDS ORDERED: Vancomycin 1 GM in Premix 1 BAG IVPB SCH (07:15)
[2023-09-13 08:29] LABS: Vancomycin, Trough 20.4 ug/mL
[2023-09-13] MEDS: Nystatin 500,000 UNITS/5 ML UDCUP SSW SCH ×4 (09:09→19:38)
[2023-09-13] MEDS: Famotidine/PF 20 mg/2ml Vial SLOW IVP SCH ×2 (09:09→19:38)
[2023-09-13] MEDS: Fluconazole In NaCl,Iso-Osm 200 MG in Premix 1 BAG IVPB SCH (09:09)
[2023-09-13] MEDS: Vancomycin (BATCH) 1.25 GM in Premix 1 BAG IVPB SCH ×2 (10:26→22:41)
[2023-09-14] MEDS: Piperacillin/Tazobactam 3.375 GM in Sodium Chloride 0.9% 100 ML IVPB SCH ×3 (02:22→21:56)
[2023-09-14] MEDS: HYDROcodone/Acetaminophen 10/325 mg Tablet PO PRN ×4 (04:41→19:36)
[2023-09-14 06:22] LABS: Hematocrit 24.8 % (36.0-47.0); Hemoglobin 8.2 g/dL (12.0-16.0); Mean Corpuscular HGB CONC 33.1 g/dL (32.0-36.0); Mean Corpuscular Hemoglobin 29.6 pg (27.0-31.0); Mean Corpuscular Volume 89.5 fl (78.0-98.0); Mean Platelet Volume 9.6 fL (7.4-10.4); Platelet Count 771 10x3/uL (130-400); RBC Distribution Width 14.2 % (11.5-14.5); Red Blood Cell (RBC) Count 2.77 mill/uL (4.20-5.40); White Blood Cell (WBC) Count 31.1 10x3/uL (4.8-10.8)
[2023-09-14 06:27] LABS: Delete Auto Diff?? YES; Manual Diff?? YES
[2023-09-14 06:46] LABS: Anion Gap 13 mmol/L (10-20); BUN (Urea Nitrogen) 10 mg/dL (7.0-18.7); Calc. Creatinine Clearance 79 mL/min (70-130); Calcium 8.3 mg/dL (7.8-10.44); Carbon Dioxide 26 mmol/L (22-29); Chloride 106 mmol/L (98-107); Estimated GFR 50; Glucose 99 mg/dL (70-105); Potassium 3.5 mmol/L (3.5-5.1); Sodium 141 mmol/L (136-145)
[2023-09-14 07:43] LABS: CellaVision Operator ID LAB.NR; Eosinophils 4 % (0-10); Hypochromia SLIGHT = 6-15 cells HPF (0-5); Large Platelets 5.6 % (0-5); Lymphocytes 1 % (21-51); Macrocytosis SLIGHT = 6-15 cells HPF (0-5); Monocytes 7 % (0-10); Neutrophil 88 % (42-75); Nucleated RBC (Manual Ct) 5 % (0); Platelet Adequacy Comment Platelets Increased; Polychromasia MODERATE = 3-4 cells HPF (0-2); Smudge Cells 5.6 %; Total Cell Count 107
[2023-09-14] MEDS ORDERED: Potassium Chloride 20 MEQ TAB PO SCH (08:00)
[2023-09-14] MEDS: Nystatin 500,000 UNITS/5 ML UDCUP SSW SCH ×4 (08:59→19:36)
[2023-09-14] MEDS: Famotidine/PF 20 mg/2ml Vial SLOW IVP SCH ×2 (08:59→19:36)
[2023-09-14] MEDS: Fluconazole In NaCl,Iso-Osm 200 MG in Premix 1 BAG IVPB SCH (09:35)
[2023-09-14] MEDS: Vancomycin (BATCH) 1.25 GM in Premix 1 BAG IVPB SCH ×2 (10:56→23:05)
[2023-09-14] MEDS: Sodium Chloride 0.9% 1,000 ML IV SCH ×2 (16:12→19:35)
[2023-09-14 21:49] LABS: Vancomycin, Trough 28.5 ug/mL
[2023-09-15] MEDS: HYDROcodone/Acetaminophen 10/325 mg Tablet PO PRN ×3 (01:22→11:09)
[2023-09-15 05:04] LABS: Hematocrit 26.3 % (36.0-47.0); Hemoglobin 8.2 g/dL (12.0-16.0); Mean Corpuscular HGB CONC 31.2 g/dL (32.0-36.0); Mean Corpuscular Hemoglobin 28.4 pg (27.0-31.0); Mean Platelet Volume 9.7 fL (7.4-10.4); Platelet Count 838 10x3/uL (130-400); RBC Distribution Width 14.4 % (11.5-14.5); Red Blood Cell (RBC) Count 2.89 mill/uL (4.20-5.40)
[2023-09-15 05:15] LABS: Delete Auto Diff?? YES; Manual Diff?? YES
[2023-09-15 05:27] LABS: Anion Gap 15 mmol/L (10-20); BUN (Urea Nitrogen) 10 mg/dL (7.0-18.7); Calc. Creatinine Clearance 82 mL/min (70-130); Calcium 8.5 mg/dL (7.8-10.44); Carbon Dioxide 25 mmol/L (22-29); Chloride 106 mmol/L (98-107); Estimated GFR 52; Glucose 90 mg/dL (70-105); Potassium 3.9 mmol/L (3.5-5.1); Sodium 142 mmol/L (136-145)
[2023-09-15] MEDS: Piperacillin/Tazobactam 3.375 GM in Sodium Chloride 0.9% 100 ML IVPB SCH ×3 (05:37→22:47)
[2023-09-15 06:48] LABS: Anisocytosis SLIGHT = 6-15 cells HPF (0-5); CellaVision Operator ID lab.sh2; Hypochromia SLIGHT = 6-15 cells HPF (0-5); Lymphocytes 6 % (21-51); Macrocytosis SLIGHT = 6-15 cells HPF (0-5); Monocytes 5 % (0-10); Neutrophil 89 % (42-75); Nucleated RBC (Manual Ct) 1 % (0); Platelet Adequacy Comment Platelets Increased; Poikilocytosis SLIGHT = 6-15 cells HPF (0-5); Polychromasia MODERATE = 3-4 cells HPF (0-2); Target Cells SLIGHT = 2-5 cells HPF (0-1); Total Cell Count 100
[2023-09-15] MEDS: Fluconazole In NaCl,Iso-Osm 200 MG in Premix 1 BAG IVPB SCH (08:46)
[2023-09-15] MEDS: Nystatin 500,000 UNITS/5 ML UDCUP SSW SCH ×4 (08:46→20:25)
[2023-09-15] MEDS: Famotidine/PF 20 mg/2ml Vial SLOW IVP SCH ×2 (08:47→20:24)
[2023-09-15] MEDS: Vancomycin HCl 750 MG in Sodium Chloride 0.9% 250 ML 250 ML IVPB SCH ×2 (11:09→21:33)
[2023-09-15] MEDS: Sodium Chloride 0.9% 1,000 ML IV SCH (16:17)
[2023-09-15] MEDS: Ondansetron PF 4 MG/2 ML Vial IVP PRN ×2 (16:32→22:53)
[2023-09-15] MEDS: D5 1/2 NS w/20 mEq KCL 1,000 ML IV SCH (19:20)
[2023-09-16] MEDS: HYDROcodone/Acetaminophen 10/325 mg Tablet PO PRN ×3 (00:23→19:38)
[2023-09-16] MEDS ORDERED: Promethazine HCl 12.5 MG in Sodium Chloride 0.9% 50 ML IVPB SCH (01:30)
[2023-09-16 05:07] LABS: #Basophils 0.1 thou/uL (0.0-0.2); #Eosinphils 0.3 thou/uL (0.0-0.7); #Monocytes 2.2 thou/uL (0.11-0.59); #Neutrophils 19.3 thou/uL (1.40-6.50); %Basophils 0.5 % (0.0-1.0); %Eosinophils 1.1 % (0.0-10.0); %Lymphocytes 6.3 % (21.0-51.0); %Monocytes 9.2 % (0.0-10.0); %Neutrophils 80.9 % (42.0-75.0); Hematocrit 26.9 % (36.0-47.0); Hemoglobin 8.4 g/dL (12.0-16.0); Mean Corpuscular HGB CONC 31.2 g/dL (32.0-36.0); Mean Corpuscular Hemoglobin 28.3 pg (27.0-31.0); Mean Corpuscular Volume 90.6 fl (78.0-98.0); Mean Platelet Volume 9.9 fL (7.4-10.4); Platelet Count 914 10x3/uL (130-400); RBC Distribution Width 14.5 % (11.5-14.5); Red Blood Cell (RBC) Count 2.97 mill/uL (4.20-5.40); White Blood Cell (WBC) Count 23.8 10x3/uL (4.8-10.8)
[2023-09-16 05:38] LABS: Anion Gap 13 mmol/L (10-20); BUN (Urea Nitrogen) 9 mg/dL (7.0-18.7); Calc. Creatinine Clearance 81 mL/min (70-130); Calcium 8.3 mg/dL (7.8-10.44); Carbon Dioxide 25 mmol/L (22-29); Chloride 105 mmol/L (98-107); Estimated GFR 51; Glucose 81 mg/dL (70-105); Potassium 4.2 mmol/L (3.5-5.1); Sodium 139 mmol/L (136-145)
[2023-09-16] MEDS: Piperacillin/Tazobactam 3.375 GM in Sodium Chloride 0.9% 100 ML IVPB SCH ×3 (06:40→23:47)
[2023-09-16] MEDS: D5 1/2 NS w/20 mEq KCL 1,000 ML IV SCH ×2 (07:27→11:52)
[2023-09-16] MEDS: Sodium Chloride 0.9% 1,000 ML IV SCH (07:27)
[2023-09-16] MEDS: Nystatin 500,000 UNITS/5 ML UDCUP SSW SCH ×4 (08:42→20:37)
[2023-09-16] MEDS: Fluconazole In NaCl,Iso-Osm 200 MG in Premix 1 BAG IVPB SCH (08:42)
[2023-09-16] MEDS: Famotidine/PF 20 mg/2ml Vial SLOW IVP SCH ×2 (08:42→20:35)
[2023-09-16] MEDS ORDERED: Sodium Chloride 0.9% 1,000 ML IV SCH (10:15)
[2023-09-16] MEDS: Vancomycin HCl 750 MG in Sodium Chloride 0.9% 250 ML 250 ML IVPB SCH (12:40)
[2023-09-16] MEDS: Metoclopramide HCl 10 MG/2 ML VIAL IVP SCH ×2 (13:59→21:17)
[2023-09-16] MEDS: Dextrose 5 %-0.45 % NaCl 1,000 ML IV SCH (13:59)
[2023-09-16 21:03] LABS: Vancomycin, Trough 21.3 ug/mL
[2023-09-16] MEDS ORDERED: Vancomycin (BATCH) 1.5 GM in Premix 1 BAG IVPB SCH ×2 (22:00→23:59)
[2023-09-17] MEDS: HYDROcodone/Acetaminophen 10/325 mg Tablet PO PRN ×4 (02:55→22:52)
[2023-09-17] MEDS: Dextrose 5 %-0.45 % NaCl 1,000 ML IV SCH ×4 (02:59→20:56)
[2023-09-17] MEDS: Metoclopramide HCl 10 MG/2 ML VIAL IVP SCH ×3 (05:49→22:37)
[2023-09-17] MEDS: Piperacillin/Tazobactam 3.375 GM in Sodium Chloride 0.9% 100 ML IVPB SCH ×3 (06:39→22:38)
[2023-09-17] MEDS: Fluconazole In NaCl,Iso-Osm 200 MG in Premix 1 BAG IVPB SCH (08:46)
[2023-09-17] MEDS: Nystatin 500,000 UNITS/5 ML UDCUP SSW SCH ×4 (08:47→20:50)
[2023-09-17] MEDS: Famotidine/PF 20 mg/2ml Vial SLOW IVP SCH ×2 (08:47→20:50)
[2023-09-18] MEDS: Dextrose 5 %-0.45 % NaCl 1,000 ML IV SCH ×2 (04:35→21:02)
[2023-09-18] MEDS: Metoclopramide HCl 10 MG/2 ML VIAL IVP SCH ×3 (05:54→21:32)
[2023-09-18] MEDS: Piperacillin/Tazobactam 3.375 GM in Sodium Chloride 0.9% 100 ML IVPB SCH (06:00)
[2023-09-18 06:33] LABS: #Basophils 0.1 thou/uL (0.0-0.2); #Eosinphils 0.5 thou/uL (0.0-0.7); #Neutrophils 12.2 thou/uL (1.40-6.50); %Basophils 0.6 % (0.0-1.0); %Eosinophils 2.9 % (0.0-10.0); %Monocytes 11.9 % (0.0-10.0); %Neutrophils 71.7 % (42.0-75.0); Hematocrit 26.7 % (36.0-47.0); Hemoglobin 8.2 g/dL (12.0-16.0); Mean Corpuscular HGB CONC 30.7 g/dL (32.0-36.0); Mean Corpuscular Hemoglobin 27.5 pg (27.0-31.0); Mean Corpuscular Volume 89.6 fl (78.0-98.0); Mean Platelet Volume 9.5 fL (7.4-10.4); RBC Distribution Width 14.3 % (11.5-14.5); Red Blood Cell (RBC) Count 2.98 mill/uL (4.20-5.40)
[2023-09-18 06:34] LABS: Platelet Count 1086 10x3/uL (130-400)
[2023-09-18 06:54] LABS: Anion Gap 12 mmol/L (10-20); BUN (Urea Nitrogen) 6 mg/dL (7.0-18.7); Calc. Creatinine Clearance 74 mL/min (70-130); Calcium 8.5 mg/dL (7.8-10.44); Carbon Dioxide 26 mmol/L (22-29); Chloride 105 mmol/L (98-107); Estimated GFR 46; Glucose 97 mg/dL (70-105); Potassium 3.8 mmol/L (3.5-5.1); Sodium 139 mmol/L (136-145)
[2023-09-18] MEDS: HYDROcodone/Acetaminophen 10/325 mg Tablet PO PRN ×2 (07:00→20:01)
[2023-09-18] MEDS: Aspirin Chewable 81 MG TAB PO SCH (09:43)
[2023-09-18] MEDS: Nystatin 500,000 UNITS/5 ML UDCUP SSW SCH ×4 (09:43→20:01)
[2023-09-18] MEDS: Amlodipine 10 MG TAB PO SCH (09:43)
[2023-09-18] MEDS: Famotidine/PF 20 mg/2ml Vial SLOW IVP SCH ×2 (09:44→20:00)
[2023-09-18] MEDS: Fluconazole In NaCl,Iso-Osm 200 MG in Premix 1 BAG IVPB SCH (09:45)
[2023-09-18] MEDS ORDERED: Iopamidol-370 76% 500 ML MDV (1 ML CHARGE) ONE (11:39)
[2023-09-18] MEDS ORDERED: GASTROGRAFIN 30 ML BOT ONE (11:39)
[2023-09-18 16:40] LABS: Bacteria/HPF None Seen HPF (None Seen); Bilirubin Negative (Negative); Blood, Urine Negative (Negative); Clarity Clear (Clear); Glucose, Urine (Dipstick) Normal (Negative); Ketone, Urine Negative (Negative); Leukocyte Negative Leu/uL (Negative); Nitrite Negative (Negative); Protein, Urine (Dipstick) Negative (Neg-Trace); RBC/HPF 0-3 HPF (0-3); Specific Gravity, Urine 1.009 (1.002-1.036); Squamous Epithelial None Seen HPF (0-3); Urobilinogen Normal mg/dL (Less than 2); WBC/HPF 0-3 HPF (0-3)
[2023-09-18] MEDS: Dextrose 5 % And 0.9 % NaCl 1,000 ML IV SCH ×2 (17:30→18:54)
[2023-09-18] MEDS: Albumin 25% 25 GM/100 ML BOT IVPB SCH ×2 (18:54→23:11)
[2023-09-19] MEDS: Dextrose 5 % And 0.9 % NaCl 1,000 ML IV SCH ×2 (02:41→12:16)
[2023-09-19] MEDS: Albumin 25% 25 GM/100 ML BOT IVPB SCH ×4 (05:40→22:28)
[2023-09-19] MEDS: Metoclopramide HCl 10 MG/2 ML VIAL IVP SCH ×3 (05:42→22:28)
[2023-09-19] MEDS: HYDROcodone/Acetaminophen 10/325 mg Tablet PO PRN ×4 (05:51→22:29)
[2023-09-19 06:23] LABS: #Basophils 0.1 thou/uL (0.0-0.2); #Eosinphils 0.5 thou/uL (0.0-0.7); #Monocytes 2.3 thou/uL (0.11-0.59); #Neutrophils 11.3 thou/uL (1.40-6.50); %Basophils 0.6 % (0.0-1.0); %Eosinophils 3.1 % (0.0-10.0); %Monocytes 13.7 % (0.0-10.0); %Neutrophils 69.1 % (42.0-75.0); Hematocrit 28.3 % (36.0-47.0); Hemoglobin 8.7 g/dL (12.0-16.0); Mean Corpuscular HGB CONC 30.7 g/dL (32.0-36.0); Mean Corpuscular Hemoglobin 27.5 pg (27.0-31.0); Mean Corpuscular Volume 89.6 fl (78.0-98.0); Mean Platelet Volume 9.3 fL (7.4-10.4); Platelet Count 1176 10x3/uL (130-400); RBC Distribution Width 14.3 % (11.5-14.5); Red Blood Cell (RBC) Count 3.16 mill/uL (4.20-5.40); White Blood Cell (WBC) Count 16.4 10x3/uL (4.8-10.8)
[2023-09-19 06:51] LABS: Anion Gap 12 mmol/L (10-20); BUN (Urea Nitrogen) 4 mg/dL (7.0-18.7); Calc. Creatinine Clearance 82 mL/min (70-130); Calcium 9.2 mg/dL (7.8-10.44); Carbon Dioxide 25 mmol/L (22-29); Chloride 106 mmol/L (98-107); Estimated GFR 52; Glucose 90 mg/dL (70-105); Potassium 3.4 mmol/L (3.5-5.1); Sodium 140 mmol/L (136-145)
[2023-09-19] MEDS: Famotidine/PF 20 mg/2ml Vial SLOW IVP SCH ×2 (09:23→22:28)
[2023-09-19] MEDS: Aspirin Chewable 81 MG TAB PO SCH (09:23)
[2023-09-19] MEDS: Amlodipine 10 MG TAB PO SCH (09:23)
[2023-09-19] MEDS: Fluconazole In NaCl,Iso-Osm 200 MG in Premix 1 BAG IVPB SCH (09:24)
[2023-09-19] MEDS: Nystatin 500,000 UNITS/5 ML UDCUP SSW SCH ×4 (09:24→20:27)
[2023-09-19] MEDS ORDERED: Potassium Chloride 20 MEQ TAB PO SCH (09:45)
[2023-09-20] MEDS: Dextrose 5 % And 0.9 % NaCl 1,000 ML IV SCH ×3 (01:47→19:59)
[2023-09-20] MEDS: HYDROcodone/Acetaminophen 10/325 mg Tablet PO PRN ×5 (04:43→23:42)
[2023-09-20] MEDS: Albumin 25% 25 GM/100 ML BOT IVPB SCH ×2 (04:43→10:01)
[2023-09-20] MEDS: Metoclopramide HCl 10 MG/2 ML VIAL IVP SCH ×3 (04:44→21:45)
[2023-09-20 06:13] LABS: #Basophils 0.1 thou/uL (0.0-0.2); #Eosinphils 0.5 thou/uL (0.0-0.7); #Monocytes 1.8 thou/uL (0.11-0.59); #Neutrophils 11.5 thou/uL (1.40-6.50); %Basophils 0.6 % (0.0-1.0); %Eosinophils 3.3 % (0.0-10.0); %Lymphocytes 10.6 % (21.0-51.0); %Monocytes 11.6 % (0.0-10.0); %Neutrophils 72.8 % (42.0-75.0); Hematocrit 28.8 % (36.0-47.0); Hemoglobin 8.9 g/dL (12.0-16.0); Mean Corpuscular HGB CONC 30.9 g/dL (32.0-36.0); Mean Corpuscular Hemoglobin 27.9 pg (27.0-31.0); Mean Corpuscular Volume 90.3 fl (78.0-98.0); Mean Platelet Volume 9.4 fL (7.4-10.4); Platelet Count 1210 10x3/uL (130-400); RBC Distribution Width 14.2 % (11.5-14.5); Red Blood Cell (RBC) Count 3.19 mill/uL (4.20-5.40); White Blood Cell (WBC) Count 15.8 10x3/uL (4.8-10.8)
[2023-09-20 06:34] LABS: Anion Gap 14 mmol/L (10-20); BUN (Urea Nitrogen) 4 mg/dL (7.0-18.7); Calc. Creatinine Clearance 86 mL/min (70-130); Calcium 9.4 mg/dL (7.8-10.44); Carbon Dioxide 22 mmol/L (22-29); Chloride 107 mmol/L (98-107); Estimated GFR 55; Glucose 105 mg/dL (70-105); Potassium 3.6 mmol/L (3.5-5.1); Sodium 139 mmol/L (136-145)
[2023-09-20] MEDS: Fluconazole In NaCl,Iso-Osm 200 MG in Premix 1 BAG IVPB SCH (09:45)
[2023-09-20] MEDS: Famotidine/PF 20 mg/2ml Vial SLOW IVP SCH (09:46)
[2023-09-20] MEDS: Aspirin Chewable 81 MG TAB PO SCH (09:46)
[2023-09-20] MEDS: Amlodipine 10 MG TAB PO SCH (09:46)
[2023-09-20] MEDS: Nystatin 500,000 UNITS/5 ML UDCUP SSW SCH ×4 (09:46→20:00)
[2023-09-20] MEDS: Pantoprazole 40 MG VIAL IVP SCH (20:00)
[2023-09-21] MEDS: Dextrose 5 % And 0.9 % NaCl 1,000 ML IV SCH ×3 (04:14→21:54)
[2023-09-21] MEDS: Metoclopramide HCl 10 MG/2 ML VIAL IVP SCH ×3 (05:11→21:43)
[2023-09-21] MEDS: HYDROcodone/Acetaminophen 10/325 mg Tablet PO PRN ×2 (05:14→23:01)
[2023-09-21 05:35] LABS: #Basophils 0.1 thou/uL (0.0-0.2); #Eosinphils 0.6 thou/uL (0.0-0.7); #Monocytes 2.2 thou/uL (0.11-0.59); #Neutrophils 11.6 thou/uL (1.40-6.50); %Basophils 0.7 % (0.0-1.0); %Eosinophils 3.6 % (0.0-10.0); %Lymphocytes 14.4 % (21.0-51.0); %Neutrophils 67.4 % (42.0-75.0); Hematocrit 29.7 % (36.0-47.0); Hemoglobin 9.2 g/dL (12.0-16.0); Mean Corpuscular Hemoglobin 27.6 pg (27.0-31.0); Mean Corpuscular Volume 89.2 fl (78.0-98.0); Mean Platelet Volume 9.2 fL (7.4-10.4); RBC Distribution Width 14.2 % (11.5-14.5); Red Blood Cell (RBC) Count 3.33 mill/uL (4.20-5.40); White Blood Cell (WBC) Count 17.3 10x3/uL (4.8-10.8)
[2023-09-21 05:36] LABS: Platelet Count 1380 10x3/uL (130-400)
[2023-09-21 06:05] LABS: ALT (SGPT) 26 U/L (8-55); AST (SGOT) 19 U/L (5-34); Alkaline Phosphatase 120 U/L (40-110); Anion Gap 14 mmol/L (10-20); BUN (Urea Nitrogen) 5 mg/dL (7.0-18.7); Bilirubin, Total 0.6 mg/dL (0.2-1.2); Calc. Creatinine Clearance 98 mL/min (70-130); Calcium 9.2 mg/dL (7.8-10.44); Carbon Dioxide 21 mmol/L (22-29); Chloride 107 mmol/L (98-107); Estimated GFR 64; Globulin 3.5 g/dL (2.4-3.5); Glucose 97 mg/dL (70-105); Potassium 3.6 mmol/L (3.5-5.1); Protein, Total 7.5 g/dL (6.0-8.3); Sodium 138 mmol/L (136-145)
[2023-09-21] MEDS: Fluconazole In NaCl,Iso-Osm 200 MG in Premix 1 BAG IVPB SCH (10:00)
[2023-09-21] MEDS: Nystatin 500,000 UNITS/5 ML UDCUP SSW SCH ×4 (10:00→20:47)
[2023-09-21] MEDS: Amlodipine 10 MG TAB PO SCH (10:02)
[2023-09-21] MEDS: Pantoprazole 40 MG VIAL IVP SCH ×2 (10:02→20:48)
[2023-09-21] MEDS ORDERED: HYDROcodone/Acetaminophen 10/325 mg Tablet PO PRN (10:21)
[2023-09-21] MEDS ORDERED: Morphine 2 MG/ML VIAL SLOW IVP PRN (10:22)
[2023-09-21] MEDS ORDERED: traMADol HCl 50 MG TAB PO PRN ×2 (10:23)
[2023-09-21] MEDS ORDERED: Lidocaine 1% PF 5 ML VIAL ONE ×2 (17:42→18:30)
[2023-09-21] MEDS ORDERED: PROPOFOL 40 ML ONE (17:42)
[2023-09-21] MEDS ORDERED: PROPOFOL 200 MG/20 ML VIAL ONE (18:30)
[2023-09-21] MEDS ORDERED: Ondansetron HCl/PF 4 MG/2 ML Vial IVP PRN (18:49)
[2023-09-21] MEDS ORDERED: HYDROmorphone 2 MG/ML VIAL SLOW IVP PRN (18:49)
[2023-09-21] MEDS ORDERED: Morphine Sulfate 2 MG/ML SYRINGE SLOW IVP PRN (18:49)
[2023-09-21] MEDS: Aspirin Chewable 81 MG TAB PO SCH (19:20)
[2023-09-21] MEDS ORDERED: Labetalol HCl 100 MG/20 ML VIAL ONE (19:20)
[2023-09-22] MEDS: Dextrose 5 % And 0.9 % NaCl 1,000 ML IV SCH ×4 (03:30→21:20)
[2023-09-22 05:14] LABS: #Basophils 0.1 thou/uL (0.0-0.2); #Eosinphils 0.4 thou/uL (0.0-0.7); #Monocytes 2.6 thou/uL (0.11-0.59); #Neutrophils 14.9 thou/uL (1.40-6.50); %Basophils 0.4 % (0.0-1.0); %Lymphocytes 12.5 % (21.0-51.0); %Monocytes 12.6 % (0.0-10.0); %Neutrophils 71.7 % (42.0-75.0); Hematocrit 31.6 % (36.0-47.0); Hemoglobin 9.7 g/dL (12.0-16.0); Mean Corpuscular HGB CONC 30.7 g/dL (32.0-36.0); Mean Corpuscular Hemoglobin 27.6 pg (27.0-31.0); Mean Platelet Volume 9.1 fL (7.4-10.4); RBC Distribution Width 14.1 % (11.5-14.5); Red Blood Cell (RBC) Count 3.51 mill/uL (4.20-5.40); White Blood Cell (WBC) Count 20.7 10x3/uL (4.8-10.8)
[2023-09-22 05:47] LABS: Platelet Count 1393 10x3/uL (130-400)
[2023-09-22 05:53] LABS: Anion Gap 16 mmol/L (10-20); BUN (Urea Nitrogen) 6 mg/dL (7.0-18.7); Calc. Creatinine Clearance 96 mL/min (70-130); Calcium 9.5 mg/dL (7.8-10.44); Carbon Dioxide 21 mmol/L (22-29); Chloride 104 mmol/L (98-107); Estimated GFR 62; Glucose 98 mg/dL (70-105); Potassium 3.5 mmol/L (3.5-5.1); Sodium 137 mmol/L (136-145)
[2023-09-22] MEDS: Metoclopramide HCl 10 MG/2 ML VIAL IVP SCH ×3 (06:06→21:09)
[2023-09-22] MEDS ORDERED: Potassium Chloride 20 MEQ TAB PO SCH (08:00)
[2023-09-22] MEDS: Aspirin Chewable 81 MG TAB PO SCH (10:51)
[2023-09-22] MEDS: Amlodipine 10 MG TAB PO SCH (10:51)
[2023-09-22] MEDS: Nystatin 500,000 UNITS/5 ML UDCUP SSW SCH ×4 (10:52→21:09)
[2023-09-22] MEDS: Fluconazole In NaCl,Iso-Osm 200 MG in Premix 1 BAG IVPB SCH (10:52)
[2023-09-22] MEDS: Pantoprazole 40 MG VIAL IVP SCH ×2 (11:05→21:10)
[2023-09-22] MEDS: HYDROcodone/Acetaminophen 10/325 mg Tablet PO PRN (15:57)
[2023-09-23] MEDS: HYDROcodone/Acetaminophen 10/325 mg Tablet PO PRN ×2 (02:01→09:32)
[2023-09-23 05:31] LABS: #Basophils 0.1 thou/uL (0.0-0.2); #Eosinphils 0.6 thou/uL (0.0-0.7); #Monocytes 2.3 thou/uL (0.11-0.59); #Neutrophils 16.5 thou/uL (1.40-6.50); %Basophils 0.6 % (0.0-1.0); %Eosinophils 2.7 % (0.0-10.0); %Lymphocytes 8.6 % (21.0-51.0); %Monocytes 10.6 % (0.0-10.0); %Neutrophils 76.8 % (42.0-75.0); Hematocrit 28.5 % (36.0-47.0); Hemoglobin 8.7 g/dL (12.0-16.0); Mean Corpuscular HGB CONC 30.5 g/dL (32.0-36.0); Mean Corpuscular Hemoglobin 27.2 pg (27.0-31.0); Mean Corpuscular Volume 89.1 fl (78.0-98.0); Mean Platelet Volume 9.3 fL (7.4-10.4); Platelet Count 1268 10x3/uL (130-400); White Blood Cell (WBC) Count 21.4 10x3/uL (4.8-10.8)
[2023-09-23] MEDS: Metoclopramide HCl 10 MG/2 ML VIAL IVP SCH ×3 (05:46→21:26)
[2023-09-23] MEDS: Dextrose 5 % And 0.9 % NaCl 1,000 ML IV SCH ×2 (05:46→10:46)
[2023-09-23 05:54] LABS: Anion Gap 13 mmol/L (10-20); BUN (Urea Nitrogen) 5 mg/dL (7.0-18.7); Calc. Creatinine Clearance 105 mL/min (70-130); Calcium 8.9 mg/dL (7.8-10.44); Carbon Dioxide 22 mmol/L (22-29); Chloride 107 mmol/L (98-107); Estimated GFR 70; Glucose 112 mg/dL (70-105); Potassium 3.8 mmol/L (3.5-5.1); Sodium 138 mmol/L (136-145)
[2023-09-23] MEDS ORDERED: Fluticasone Propionate Nasal Spray 16 gm Bottle NASAL PRN (07:35)
[2023-09-23] MEDS ORDERED: Fluconazole In NaCl,Iso-Osm 200 MG in Premix 1 BAG IVPB SCH (09:15)
[2023-09-23] MEDS: Pantoprazole 40 MG VIAL IVP SCH ×2 (09:32→20:45)
[2023-09-23] MEDS: Amlodipine 10 MG TAB PO SCH (09:32)
[2023-09-23] MEDS: Nystatin 500,000 UNITS/5 ML UDCUP SSW SCH ×4 (09:32→20:45)
[2023-09-23] MEDS: Aspirin Chewable 81 MG TAB PO SCH (09:32)
[2023-09-23] MEDS: Fluconazole In NaCl,Iso-Osm 200 MG in Premix 1 BAG IVPB SCH (09:43)
[2023-09-23] MEDS: Loratadine 10 MG TAB PO SCH (09:43)
[2023-09-23] MEDS ORDERED: Electrolyte Replacement Protocol FS PRN (10:15)
[2023-09-23] MEDS: Hydrocodone-Acetamin 15 ML UDCUP PER TUBE PRN ×2 (13:19→18:30)
[2023-09-24] MEDS: Hydrocodone-Acetamin 15 ML UDCUP PER TUBE PRN ×4 (00:03→19:14)
[2023-09-24] MEDS: Dextrose 5 % And 0.9 % NaCl 1,000 ML IV SCH ×3 (05:00→21:03)
[2023-09-24] MEDS: Metoclopramide HCl 10 MG/2 ML VIAL IVP SCH ×3 (05:57→21:02)
[2023-09-24] MEDS: Pantoprazole 40 MG VIAL IVP SCH ×2 (08:57→20:57)
[2023-09-24] MEDS: Fluconazole In NaCl,Iso-Osm 200 MG in Premix 1 BAG IVPB SCH (08:57)
[2023-09-24] MEDS: Nystatin 500,000 UNITS/5 ML UDCUP SSW SCH ×4 (08:57→21:03)
[2023-09-24] MEDS: Loratadine 10 MG TAB PO SCH (08:58)
[2023-09-24] MEDS: Aspirin Chewable 81 MG TAB PO SCH (08:58)
[2023-09-24] MEDS: Amlodipine 10 MG TAB PO SCH (08:58)
[2023-09-25] MEDS: Hydrocodone-Acetamin 15 ML UDCUP PER TUBE PRN ×3 (01:42→18:30)
[2023-09-25] MEDS: Metoclopramide HCl 10 MG/2 ML VIAL IVP SCH ×3 (05:58→19:49)
[2023-09-25 06:34] LABS: #Basophils 0.1 thou/uL (0.0-0.2); #Monocytes 2.4 thou/uL (0.11-0.59); #Neutrophils 11.2 thou/uL (1.40-6.50); %Basophils 0.6 % (0.0-1.0); %Eosinophils 6.1 % (0.0-10.0); %Lymphocytes 12.6 % (21.0-51.0); %Monocytes 14.3 % (0.0-10.0); %Neutrophils 65.7 % (42.0-75.0); Hematocrit 27.8 % (36.0-47.0); Hemoglobin 8.7 g/dL (12.0-16.0); Mean Corpuscular HGB CONC 31.3 g/dL (32.0-36.0); Mean Corpuscular Hemoglobin 27.4 pg (27.0-31.0); Mean Corpuscular Volume 87.7 fl (78.0-98.0); Mean Platelet Volume 8.9 fL (7.4-10.4); Platelet Count 1199 10x3/uL (130-400); Red Blood Cell (RBC) Count 3.17 mill/uL (4.20-5.40)
[2023-09-25 06:55] LABS: Phosphorus 3.7 mg/dL (2.3-4.7)
[2023-09-25 06:59] LABS: Anion Gap 14 mmol/L (10-20); BUN (Urea Nitrogen) 6 mg/dL (7.0-18.7); Calc. Creatinine Clearance 106 mL/min (70-130); Calcium 9.2 mg/dL (7.8-10.44); Carbon Dioxide 24 mmol/L (22-29); Cardiac Risk 4.6 (Less than 4.5); Chloride 104 mmol/L (98-107); Cholesterol 115 mg/dl (< 200 Desired); Estimated GFR 71; Glucose 96 mg/dL (70-105); HDL Cholesterol 25 mg/dL (>60 Neg Risk); LDL Cholesterol, Calculated 67 mg/dL; Magnesium 1.9 mg/dL (1.6-2.6); Potassium 3.7 mmol/L (3.5-5.1); Sodium 138 mmol/L (136-145); Triglycerides 114 mg/dL (Less than 150)
[2023-09-25] MEDS: Fluconazole In NaCl,Iso-Osm 200 MG in Premix 1 BAG IVPB SCH (08:03)
[2023-09-25] MEDS: Nystatin 500,000 UNITS/5 ML UDCUP SSW SCH ×4 (08:04→19:49)
[2023-09-25] MEDS: Aspirin Chewable 81 MG TAB PO SCH (08:04)
[2023-09-25] MEDS: Amlodipine 10 MG TAB PO SCH (08:04)
[2023-09-25] MEDS: Loratadine 10 MG TAB PO SCH (08:04)
[2023-09-25] MEDS: Pantoprazole 40 MG VIAL IVP SCH ×2 (08:05→19:49)
[2023-09-25] MEDS ORDERED: Magnesium 2 GM/50 ML(in water) 2 GM in Premix 1 BAG IVPB SCH (09:00)
[2023-09-25] MEDS: Dextrose 5 % And 0.9 % NaCl 1,000 ML IV SCH ×2 (11:59→19:49)
[2023-09-26] MEDS: Hydrocodone-Acetamin 15 ML UDCUP PER TUBE PRN ×3 (04:57→18:09)
[2023-09-26] MEDS: Metoclopramide HCl 10 MG/2 ML VIAL IVP SCH ×3 (04:57→19:23)
[2023-09-26 06:06] LABS: Anion Gap 17 mmol/L (10-20); BUN (Urea Nitrogen) 4 mg/dL (7.0-18.7); Calc. Creatinine Clearance 112 mL/min (70-130); Calcium 9.1 mg/dL (7.8-10.44); Carbon Dioxide 21 mmol/L (22-29); Chloride 104 mmol/L (98-107); Estimated GFR 75; Glucose 104 mg/dL (70-105); Potassium 3.5 mmol/L (3.5-5.1); Sodium 138 mmol/L (136-145)
[2023-09-26 06:07] LABS: Phosphorus 3.3 mg/dL (2.3-4.7)
[2023-09-26] MEDS ORDERED: Potassium Chloride 20 MEQ TAB PO SCH (08:00)
[2023-09-26] MEDS ORDERED: Magnesium 2 GM/50 ML(in water) 2 GM in Premix 1 BAG IVPB SCH (08:00)
[2023-09-26] MEDS: Amlodipine 10 MG TAB PO SCH (08:52)
[2023-09-26] MEDS: Aspirin Chewable 81 MG TAB PO SCH (08:52)
[2023-09-26] MEDS: Nystatin 500,000 UNITS/5 ML UDCUP SSW SCH ×4 (08:53→19:21)
[2023-09-26] MEDS: Fluconazole In NaCl,Iso-Osm 200 MG in Premix 1 BAG IVPB SCH (08:53)
[2023-09-26] MEDS: Pantoprazole 40 MG VIAL IVP SCH ×2 (08:53→19:22)
[2023-09-26] MEDS: Loratadine 10 MG TAB PO SCH (08:53)
[2023-09-26] MEDS: Dextrose 5 % And 0.9 % NaCl 1,000 ML IV SCH ×2 (18:18→19:22)
[2023-09-27 05:04] LABS: Hematocrit 26.9 % (36.0-47.0); Hemoglobin 8.4 g/dL (12.0-16.0); Mean Corpuscular HGB CONC 31.2 g/dL (32.0-36.0); Mean Corpuscular Hemoglobin 27.2 pg (27.0-31.0); Mean Corpuscular Volume 87.1 fl (78.0-98.0); Mean Platelet Volume 9.1 fL (7.4-10.4); Platelet Count 973 10x3/uL (130-400); RBC Distribution Width 14.1 % (11.5-14.5); Red Blood Cell (RBC) Count 3.09 mill/uL (4.20-5.40); White Blood Cell (WBC) Count 15.3 10x3/uL (4.8-10.8)
[2023-09-27 05:40] LABS: Phosphorus 3.3 mg/dL (2.3-4.7)
[2023-09-27] MEDS: Metoclopramide HCl 10 MG/2 ML VIAL IVP SCH ×3 (05:52→21:11)
[2023-09-27 05:53] LABS: Anion Gap 14 mmol/L (10-20); BUN (Urea Nitrogen) 4 mg/dL (7.0-18.7); Calc. Creatinine Clearance 119 mL/min (70-130); Calcium 8.8 mg/dL (7.8-10.44); Carbon Dioxide 23 mmol/L (22-29); Chloride 104 mmol/L (98-107); Estimated GFR 81; Glucose 103 mg/dL (70-105); Potassium 3.3 mmol/L (3.5-5.1); Sodium 138 mmol/L (136-145)
[2023-09-27 06:09] LABS: Delete Auto Diff?? YES
[2023-09-27 06:14] LABS: %Eosinophils 3.6 % (0.0-10.0); %Lymphocytes 10.1 % (21.0-51.0); %Monocytes 13.8 % (0.0-10.0); Manual Diff?? NO
[2023-09-27 06:15] LABS: #Basophils 0.1 thou/uL (0.0-0.2); #Eosinphils 0.6 thou/uL (0.0-0.7); #Monocytes 2.1 thou/uL (0.11-0.59); #Neutrophils 10.9 thou/uL (1.40-6.50); %Basophils 0.9 % (0.0-1.0)
[2023-09-27] MEDS: Hydrocodone-Acetamin 15 ML UDCUP PER TUBE PRN ×2 (07:25→13:55)
[2023-09-27] MEDS ORDERED: Potassium Chloride 20 MEQ TAB PO SCH (08:00)
[2023-09-27] MEDS ORDERED: Magnesium 2 GM/50 ML(in water) 2 GM in Premix 1 BAG IVPB SCH (08:00)
[2023-09-27] MEDS: Fluconazole In NaCl,Iso-Osm 200 MG in Premix 1 BAG IVPB SCH (08:47)
[2023-09-27] MEDS: Amlodipine 10 MG TAB PO SCH (08:48)
[2023-09-27] MEDS: Aspirin Chewable 81 MG TAB PO SCH (08:48)
[2023-09-27] MEDS: Loratadine 10 MG TAB PO SCH (08:48)
[2023-09-27] MEDS: Pantoprazole 40 MG VIAL IVP SCH ×2 (08:48→21:12)
[2023-09-27] MEDS: Nystatin 500,000 UNITS/5 ML UDCUP SSW SCH ×4 (08:48→21:12)
[2023-09-27] MEDS: Dextrose 5 % And 0.9 % NaCl 1,000 ML IV SCH (21:12)
[2023-09-28] MEDS: Metoclopramide HCl 10 MG/2 ML VIAL IVP SCH ×3 (05:59→21:12)
[2023-09-28 07:14] LABS: Phosphorus 3.3 mg/dL (2.3-4.7)
[2023-09-28 07:18] LABS: Anion Gap 15 mmol/L (10-20); BUN (Urea Nitrogen) 4 mg/dL (7.0-18.7); Calc. Creatinine Clearance 122 mL/min (70-130); Calcium 8.9 mg/dL (7.8-10.44); Carbon Dioxide 23 mmol/L (22-29); Chloride 104 mmol/L (98-107); Estimated GFR 84; Glucose 96 mg/dL (70-105); Potassium 3.5 mmol/L (3.5-5.1); Sodium 138 mmol/L (136-145)
[2023-09-28] MEDS ORDERED: PNEUMOC 20-VAL CONJ-DIP CRM/PF 0.5 ML SYRINGE IM ONE (08:15)
[2023-09-28] MEDS ORDERED: Haemoph B Poly Conj-Tet Tox/PF 10 MCG/0.5 ML VIAL IM ONE (08:15)
[2023-09-28] MEDS ORDERED: Mening Vac A,C,Y,W-135 Dip/PF (MENVEO) IM ONE (08:15)
[2023-09-28] MEDS ORDERED: Potassium Chloride 20 MEQ TAB PO SCH (09:00)
[2023-09-28] MEDS ORDERED: Magnesium 2 GM/50 ML(in water) 2 GM in Premix 1 BAG IVPB SCH (09:00)
[2023-09-28] MEDS: Hydrocodone-Acetamin 15 ML UDCUP PER TUBE PRN ×2 (09:14→15:07)
[2023-09-28] MEDS: Nystatin 500,000 UNITS/5 ML UDCUP SSW SCH ×4 (09:15→21:12)
[2023-09-28] MEDS: Amlodipine 10 MG TAB PO SCH (09:16)
[2023-09-28] MEDS: Loratadine 10 MG TAB PO SCH (09:16)
[2023-09-28] MEDS: Pantoprazole 40 MG VIAL IVP SCH ×2 (09:16→21:13)
[2023-09-28] MEDS: Fluconazole In NaCl,Iso-Osm 200 MG in Premix 1 BAG IVPB SCH (09:16)
[2023-09-28] MEDS: Dextrose 5 % And 0.9 % NaCl 1,000 ML IV SCH (12:49)
[2023-09-28] MEDS: Ondansetron PF 4 MG/2 ML Vial IVP PRN (12:49)
[2023-09-29] MEDS: Dextrose 5 % And 0.9 % NaCl 1,000 ML IV SCH ×2 (03:27→20:48)
[2023-09-29] MEDS: Metoclopramide HCl 10 MG/2 ML VIAL IVP SCH ×3 (05:38→21:00)
[2023-09-29] MEDS: Hydrocodone-Acetamin 15 ML UDCUP PER TUBE PRN ×3 (05:38→18:50)
[2023-09-29 05:41] LABS: Anion Gap 13 mmol/L (10-20); BUN (Urea Nitrogen) 6 mg/dL (7.0-18.7); Calc. Creatinine Clearance 122 mL/min (70-130); Calcium 8.7 mg/dL (7.8-10.44); Carbon Dioxide 24 mmol/L (22-29); Chloride 103 mmol/L (98-107); Estimated GFR 84; Glucose 100 mg/dL (70-105); Potassium 3.8 mmol/L (3.5-5.1); Sodium 136 mmol/L (136-145)
[2023-09-29] MEDS ORDERED: Magnesium 2 GM/50 ML(in water) 2 GM in Premix 1 BAG IVPB SCH (08:00)
[2023-09-29] MEDS: Nystatin 500,000 UNITS/5 ML UDCUP SSW SCH ×4 (08:58→20:47)
[2023-09-29] MEDS: Amlodipine 10 MG TAB PO SCH (08:58)
[2023-09-29] MEDS: Pantoprazole 40 MG VIAL IVP SCH ×2 (08:58→20:47)
[2023-09-29] MEDS: Fluconazole In NaCl,Iso-Osm 200 MG in Premix 1 BAG IVPB SCH (08:58)
[2023-09-29] MEDS: Loratadine 10 MG TAB PO SCH (08:59)
[2023-09-30] MEDS: Hydrocodone-Acetamin 15 ML UDCUP PER TUBE PRN ×4 (00:21→18:56)
[2023-09-30] MEDS: Metoclopramide HCl 10 MG/2 ML VIAL IVP SCH ×3 (05:18→21:41)
[2023-09-30 06:00] LABS: Phosphorus 4.3 mg/dL (2.3-4.7)
[2023-09-30 06:14] LABS: Anion Gap 12 mmol/L (10-20); BUN (Urea Nitrogen) 6 mg/dL (7.0-18.7); Calc. Creatinine Clearance 124 mL/min (70-130); Calcium 8.6 mg/dL (7.8-10.44); Carbon Dioxide 25 mmol/L (22-29); Chloride 104 mmol/L (98-107); Estimated GFR 85; Glucose 94 mg/dL (70-105); Potassium 3.6 mmol/L (3.5-5.1); Sodium 137 mmol/L (136-145)
[2023-09-30] MEDS ORDERED: Magnesium 2 GM/50 ML(in water) 2 GM in Premix 1 BAG IVPB SCH (08:00)
[2023-09-30] MEDS: Pantoprazole 40 MG VIAL IVP SCH ×2 (08:34→19:48)
[2023-09-30] MEDS: Amlodipine 10 MG TAB PO SCH (08:36)
[2023-09-30] MEDS: Loratadine 10 MG TAB PO SCH (08:36)
[2023-09-30] MEDS: Dextrose 5 % And 0.9 % NaCl 1,000 ML IV SCH ×2 (08:36→13:44)
[2023-09-30] MEDS: Nystatin 500,000 UNITS/5 ML UDCUP SSW SCH ×4 (08:37→19:48)
[2023-09-30] MEDS: Fluconazole In NaCl,Iso-Osm 200 MG in Premix 1 BAG IVPB SCH (09:56)
[2023-10-01] MEDS: Hydrocodone-Acetamin 15 ML UDCUP PER TUBE PRN ×2 (00:26→06:04)
[2023-10-01] MEDS: Dextrose 5 % And 0.9 % NaCl 1,000 ML IV SCH ×2 (04:07→17:56)
[2023-10-01] MEDS: Metoclopramide HCl 10 MG/2 ML VIAL IVP SCH ×3 (06:04→21:50)
[2023-10-01 07:04] LABS: Anion Gap 13 mmol/L (10-20); BUN (Urea Nitrogen) 6 mg/dL (7.0-18.7); Calc. Creatinine Clearance 128 mL/min (70-130); Calcium 8.8 mg/dL (7.8-10.44); Carbon Dioxide 25 mmol/L (22-29); Chloride 102 mmol/L (98-107); Estimated GFR 89; Glucose 86 mg/dL (70-105); Magnesium 1.9 mg/dL (1.6-2.6); Potassium 3.7 mmol/L (3.5-5.1); Sodium 136 mmol/L (136-145)
[2023-10-01 07:26] LABS: Phosphorus 4.1 mg/dL (2.3-4.7)
[2023-10-01] MEDS ORDERED: Magnesium 2 GM/50 ML(in water) 2 GM in Premix 1 BAG IVPB SCH (08:00)
[2023-10-01] MEDS: Nystatin 500,000 UNITS/5 ML UDCUP SSW SCH ×4 (08:51→20:07)
[2023-10-01] MEDS: Loratadine 10 MG TAB PO SCH (08:51)
[2023-10-01] MEDS: Amlodipine 10 MG TAB PO SCH (08:51)
[2023-10-01] MEDS: Fluconazole In NaCl,Iso-Osm 200 MG in Premix 1 BAG IVPB SCH (08:51)
[2023-10-01] MEDS: Pantoprazole 40 MG VIAL IVP SCH ×2 (08:52→20:05)
[2023-10-01] MEDS ORDERED: Acetaminophen 325 MG/10.15 ML UDCUP PO PRN (10:38)
[2023-10-01] MEDS ORDERED: Acetaminophen 650 MG/20.3 ML UDCUP PO PRN (11:13)
[2023-10-01] MEDS: Ibuprofen 100 MG/5 ML UDCUP PO PRN ×2 (13:23→20:01)
[2023-10-02] MEDS: Ibuprofen 100 MG/5 ML UDCUP PO PRN ×2 (04:22→16:08)
[2023-10-02] MEDS: Metoclopramide HCl 10 MG/2 ML VIAL IVP SCH ×3 (05:51→20:30)
[2023-10-02] MEDS: Pantoprazole 40 MG VIAL IVP SCH ×2 (08:25→20:34)
[2023-10-02] MEDS: Nystatin 500,000 UNITS/5 ML UDCUP SSW SCH ×4 (08:25→20:30)
[2023-10-02] MEDS: Amlodipine 10 MG TAB PO SCH (08:25)
[2023-10-02] MEDS: Fluconazole In NaCl,Iso-Osm 200 MG in Premix 1 BAG IVPB SCH (08:26)
[2023-10-02] MEDS: Loratadine 10 MG TAB PO SCH (08:27)
[2023-10-02 09:41] LABS: Anion Gap 15 mmol/L (10-20); BUN (Urea Nitrogen) 6 mg/dL (7.0-18.7); Calc. Creatinine Clearance 125 mL/min (70-130); Calcium 9.1 mg/dL (7.8-10.44); Carbon Dioxide 21 mmol/L (22-29); Chloride 104 mmol/L (98-107); Estimated GFR 86; Glucose 110 mg/dL (70-105); Sodium 136 mmol/L (136-145)
[2023-10-02 11:08] LABS: #Basophils 0.2 thou/uL (0.0-0.2); #Monocytes 1.9 thou/uL (0.11-0.59); #Neutrophils 12.5 thou/uL (1.40-6.50); %Basophils 0.9 % (0.0-1.0); %Eosinophils 5.2 % (0.0-10.0); %Lymphocytes 13.7 % (21.0-51.0); %Monocytes 10.2 % (0.0-10.0); %Neutrophils 68.1 % (42.0-75.0); Hematocrit 30.7 % (36.0-47.0); Hemoglobin 9.8 g/dL (12.0-16.0); Mean Corpuscular HGB CONC 31.9 g/dL (32.0-36.0); Mean Corpuscular Hemoglobin 27.1 pg (27.0-31.0); Mean Corpuscular Volume 84.8 fl (78.0-98.0); Mean Platelet Volume 9.8 fL (7.4-10.4); Platelet Count 600 10x3/uL (130-400); RBC Distribution Width 13.8 % (11.5-14.5); Red Blood Cell (RBC) Count 3.62 mill/uL (4.20-5.40); White Blood Cell (WBC) Count 18.4 10x3/uL (4.8-10.8)
[2023-10-02] MEDS ORDERED: Iopamidol-370 76% 500 ML MDV (1 ML CHARGE) ONE (14:27)
[2023-10-02] MEDS: Dextrose 5 % And 0.9 % NaCl 1,000 ML IV SCH (14:42)
[2023-10-02] MEDS: LevoFLOXacin 500 mg/D5W 500 MG in Premix 1 BAG IVPB SCH (17:39)
[2023-10-03] MEDS: Metoclopramide HCl 10 MG/2 ML VIAL IVP SCH ×3 (04:58→21:15)
[2023-10-03] MEDS: Dextrose 5 % And 0.9 % NaCl 1,000 ML IV SCH ×2 (04:58→21:20)
[2023-10-03] MEDS: Loratadine 10 MG TAB PO SCH (08:57)
[2023-10-03] MEDS: Pantoprazole 40 MG VIAL IVP SCH ×2 (08:58→21:14)
[2023-10-03] MEDS: Nystatin 500,000 UNITS/5 ML UDCUP SSW SCH ×4 (08:58→21:15)
[2023-10-03] MEDS: Fluconazole In NaCl,Iso-Osm 200 MG in Premix 1 BAG IVPB SCH (08:58)
[2023-10-03] MEDS: Amlodipine 10 MG TAB PO SCH (08:58)
[2023-10-03] MEDS: Ondansetron PF 4 MG/2 ML Vial IVP PRN ×2 (11:44→21:44)
[2023-10-03] MEDS: Ibuprofen 100 MG/5 ML UDCUP PO PRN ×2 (14:55→21:13)
[2023-10-03] MEDS: LevoFLOXacin 500 mg/D5W 500 MG in Premix 1 BAG IVPB SCH (18:09)
[2023-10-04] MEDS: Metoclopramide HCl 10 MG/2 ML VIAL IVP SCH ×3 (05:08→21:53)
[2023-10-04] MEDS: Pantoprazole 40 MG VIAL IVP SCH ×2 (09:13→21:53)
[2023-10-04] MEDS: Nystatin 500,000 UNITS/5 ML UDCUP SSW SCH ×4 (09:13→21:53)
[2023-10-04] MEDS: Ibuprofen 100 MG/5 ML UDCUP PO PRN (09:14)
[2023-10-04] MEDS: Loratadine 10 MG TAB PO SCH (09:14)
[2023-10-04] MEDS: Amlodipine 10 MG TAB PO SCH (09:14)
[2023-10-04] MEDS: Fluconazole In NaCl,Iso-Osm 200 MG in Premix 1 BAG IVPB SCH (09:15)
[2023-10-04] MEDS: Dextrose 5 % And 0.9 % NaCl 1,000 ML IV SCH ×2 (10:37→21:51)
[2023-10-04] MEDS ORDERED: Lidocaine 1% (PF) 30 ML VIAL ONE (14:01)
[2023-10-04] MEDS: Hydrocodone-Acetamin 15 ML UDCUP PER TUBE PRN ×2 (14:34→21:51)
[2023-10-04 15:12] LABS: RBC Count-Automated (BF) 1369 /cu.mm; WBC/Nucleated-Auto (BF) 661 /cu.mm
[2023-10-04 15:39] LABS: BF Color Yellow; Body Fluid Source Pleural Fluid; Clarity Clear (Clear); Tube # EDTA
[2023-10-04 15:42] LABS: BF Segmented Neutrophils 8 %; Cell Count Non Hematic 22 %; Eosinophils 2 %; Lymphocytes 65 %
[2023-10-04 16:06] LABS: Pleural Fluid, Protein 5.1 g/dL
[2023-10-04 16:39] LABS: ALT (SGPT) 19 U/L (8-55); AST (SGOT) 23 U/L (5-34); Albumin 3.2 g/dL (3.5-5.0); Alkaline Phosphatase 142 U/L (40-110); Anion Gap 14 mmol/L (10-20); BUN (Urea Nitrogen) 5 mg/dL (7.0-18.7); Bilirubin, Total 0.3 mg/dL (0.2-1.2); Calc. Creatinine Clearance 133 mL/min (70-130); Calcium 8.8 mg/dL (7.8-10.44); Carbon Dioxide 23 mmol/L (22-29); Chloride 104 mmol/L (98-107); Estimated GFR 93; Globulin 3.9 g/dL (2.4-3.5); Glucose 104 mg/dL (70-105); Potassium 3.7 mmol/L (3.5-5.1); Protein, Total 7.1 g/dL (6.0-8.3); Sodium 137 mmol/L (136-145)
[2023-10-04] MEDS: LevoFLOXacin 500 mg/D5W 500 MG in Premix 1 BAG IVPB SCH (17:57)
[2023-10-05] MEDS: Metoclopramide HCl 10 MG/2 ML VIAL IVP SCH ×3 (05:41→21:26)
[2023-10-05 05:52] LABS: Hematocrit 26.9 % (36.0-47.0); Hemoglobin 8.4 g/dL (12.0-16.0); Mean Corpuscular HGB CONC 31.2 g/dL (32.0-36.0); Mean Corpuscular Hemoglobin 26.7 pg (27.0-31.0); Mean Corpuscular Volume 85.4 fl (78.0-98.0); Platelet Count 510 10x3/uL (130-400); RBC Distribution Width 14.1 % (11.5-14.5); Red Blood Cell (RBC) Count 3.15 mill/uL (4.20-5.40); White Blood Cell (WBC) Count 16.4 10x3/uL (4.8-10.8)
[2023-10-05 06:16] LABS: Anion Gap 12 mmol/L (10-20); BUN (Urea Nitrogen) 6 mg/dL (7.0-18.7); Calc. Creatinine Clearance 133 mL/min (70-130); Calcium 8.8 mg/dL (7.8-10.44); Carbon Dioxide 25 mmol/L (22-29); Chloride 103 mmol/L (98-107); Estimated GFR 93; Glucose 103 mg/dL (70-105); Potassium 3.7 mmol/L (3.5-5.1); Sodium 136 mmol/L (136-145)
[2023-10-05] MEDS: Nystatin 500,000 UNITS/5 ML UDCUP SSW SCH ×4 (08:33→20:07)
[2023-10-05] MEDS: Loratadine 10 MG TAB PO SCH (08:33)
[2023-10-05] MEDS: Amlodipine 10 MG TAB PO SCH (08:33)
[2023-10-05] MEDS: Pantoprazole 40 MG VIAL IVP SCH ×2 (08:33→20:06)
[2023-10-05] MEDS: Ibuprofen 100 MG/5 ML UDCUP PO PRN ×3 (08:40→21:26)
[2023-10-05] MEDS: Dextrose 5 % And 0.9 % NaCl 1,000 ML IV SCH (14:27)
[2023-10-05] MEDS: LevoFLOXacin 500 mg/D5W 500 MG in Premix 1 BAG IVPB SCH (16:57)
[2023-10-06] MEDS: Ibuprofen 100 MG/5 ML UDCUP PO PRN ×2 (05:56→14:22)
[2023-10-06] MEDS: Metoclopramide HCl 10 MG/2 ML VIAL IVP SCH ×2 (05:57→14:18)
[2023-10-06] MEDS: Dextrose 5 % And 0.9 % NaCl 1,000 ML IV SCH (05:58)
[2023-10-06] MEDS: Amlodipine 10 MG TAB PO SCH (09:13)
[2023-10-06] MEDS: Loratadine 10 MG TAB PO SCH (09:14)
[2023-10-06] MEDS: Nystatin 500,000 UNITS/5 ML UDCUP SSW SCH ×3 (09:14→17:24)
[2023-10-06] MEDS: Pantoprazole 40 MG VIAL IVP SCH (09:14)
[2023-10-06 11:42] VITALS: TEMP 97.9
[2023-10-06 15:55] VITALS: BP 122/77
[2023-10-06] MEDS: LevoFLOXacin 500 mg/D5W 500 MG in Premix 1 BAG IVPB SCH (17:25)
[2023-10-06] MEDS: Hydrocodone-Acetamin 15 ML UDCUP PER TUBE PRN (18:15)
== END 2023-10-06 20:29 | disposition short-term general hospital (02) | DRG 326 ==
LOC: ERS 18:41 → SJJU 22:27 → 2SW 09-05 21:34 → SURG B 09-08 18:32
PROVIDERS: ADMIT Surgery; ATTEND Internal Medicine
PROC: 0BQT0ZZ Repair Diaphragm, Open Approach (ICD-10-PCS; principal; 2023-09-04)
PROC: 07TP0ZZ Resection of Spleen, Open Approach (ICD-10-PCS; 2023-09-04)
PROC: 0BJT4ZZ Inspection of Diaphragm, Percutaneous Endoscopic Approach (ICD-10-PCS; 2023-09-04)
PROC: 0DB60ZZ Excision of Stomach, Open Approach (ICD-10-PCS; 2023-09-04)
PROC: 8E0W4CZ Robotic Assisted Procedure of Trunk Region, Percutaneous Endoscopic Approach (ICD-10-PCS; 2023-09-04)
PROC: 0DH60UZ Insertion of Feeding Device into Stomach, Open Approach (ICD-10-PCS; 2023-09-04)
PROC: 3E0G76Z Introduction of Nutritional Substance into Upper GI, Via Natural or Artificial Opening (ICD-10-PCS; 2023-09-04)
PROC: 0DJ08ZZ Inspection of Upper Intestinal Tract, Via Natural or Artificial Opening Endoscopic (ICD-10-PCS; 2023-09-04)
PROC: 0DJ60ZZ Inspection of Stomach, Open Approach (ICD-10-PCS; 2023-09-05)
PROC: 02HV33Z Insertion of Infusion Device into Superior Vena Cava, Percutaneous Approach (ICD-10-PCS; 2023-09-27)
PROC: B5181ZA Fluoroscopy of Superior Vena Cava using Low Osmolar Contrast, Guidance (ICD-10-PCS; 2023-09-27)
PROC: 3E04329 Introduction of Other Anti-infective into Central Vein, Percutaneous Approach (ICD-10-PCS; 2023-09-27)
PROC: 0W9B3ZZ Drainage of Left Pleural Cavity, Percutaneous Approach (ICD-10-PCS; 2023-10-04)
DX: K44.0 Diaphragmatic hernia with obstruction, without gangrene (principal); A41.9 Sepsis, unspecified organism; J96.01 Acute respiratory failure with hypoxia; K65.1 Peritoneal abscess; D62 Acute posthemorrhagic anemia; N17.9 Acute kidney failure, unspecified; J90 Pleural effusion, not elsewhere classified; E66.9 Obesity, unspecified; K21.9 Gastro-esophageal reflux disease without esophagitis; R00.0 Tachycardia, unspecified; D72.829 Elevated white blood cell count, unspecified; E87.6 Hypokalemia; B37.9 Candidiasis, unspecified; D75.839 Thrombocytosis, unspecified; D64.9 Anemia, unspecified; K22.2 Esophageal obstruction; Z68.35 Body mass index [BMI] 35.0-35.9, adult; Z98.890 Other specified postprocedural states; Z79.899 Other long term (current) drug therapy
CPT/HCPCS: 36415; 36416; 36430; 36569; 71045; 74018; 74177; 74240; 76000; 80048; 80053; 80061; 80202; 81001; 81025; 82042; 82150; 82945; 83036; 83615; 83690; 83735; 83986; 84100; 84157; 85014; 85018; 85025; 85027; 85060; 86850; 86900; 86901; 87040; 87070; 87077; 87186; 87205; 88305; 88307; 89051; 90471; 90630; 90648; 90734; 93306; 94640; 96361; 96374; 96375; 90677; A4314; A4649; C1713; C1751; C9113; G0009; J0171; J1100; J1170; J1450; J1650; J1885; J1940; J1956; J2001; J2250; J2270; J2272; J2405; J2543; J2550; J2704; J2765; J3010; J3370; J3370-JW; J3475; J3480; J3490; J7030; J7042; J7050; J7620; P9016; P9045; P9047; Q9963; Q9967; Q9968; S0020; S0028

== ENCOUNTER 2023-10-10 13:02 | Inpatient (IN) | payer BC ==
[2023-10-10] MEDS ORDERED: Hydrocodone-Acetamin 15 ML UDCUP PO PRN (20:20)
[2023-10-10] MEDS ORDERED: Morphine 2 MG/ML VIAL SLOW IVP PRN (20:21)
[2023-10-10] MEDS ORDERED: Ondansetron PF 4 MG/2 ML Vial IVP PRN (20:23)
[2023-10-10] MEDS ORDERED: Morphine 4 MG/ML VIAL SLOW IVP PRN (20:23)
[2023-10-10 21:28] VITALS: BMI 31.4
[2023-10-10] MEDS: D5 1/2 NS w/20 mEq KCL 1,000 ML IV SCH (21:32)
[2023-10-10] MEDS ORDERED: Enoxaparin 80 MG (0.8 mL) SYRINGE SC SCH (21:45)
[2023-10-10] MEDS ORDERED: LevoFLOXacin 750 mg/D5W 750 MG in Premix 1 BAG IVPB SCH (21:45)
[2023-10-11 08:29] LABS: #Basophils 0.1 thou/uL (0.0-0.2); #Eosinphils 0.5 thou/uL (0.0-0.7); #Monocytes 1.8 thou/uL (0.11-0.59); #Neutrophils 11.5 thou/uL (1.40-6.50); %Basophils 0.5 % (0.0-1.0); %Eosinophils 3.2 % (0.0-10.0); %Monocytes 10.9 % (0.0-10.0); %Neutrophils 70.3 % (42.0-75.0); Hematocrit 27.6 % (36.0-47.0); Hemoglobin 8.6 g/dL (12.0-16.0); Mean Corpuscular HGB CONC 31.2 g/dL (32.0-36.0); Mean Corpuscular Hemoglobin 26.8 pg (27.0-31.0); Mean Platelet Volume 9.4 fL (7.4-10.4); Platelet Count 682 10x3/uL (130-400); RBC Distribution Width 14.7 % (11.5-14.5); Red Blood Cell (RBC) Count 3.21 mill/uL (4.20-5.40); White Blood Cell (WBC) Count 16.4 10x3/uL (4.8-10.8)
[2023-10-11 08:37] LABS: Anion Gap 13 mmol/L (10-20); BUN (Urea Nitrogen) 8 mg/dL (7.0-18.7); Calc. Creatinine Clearance 114 mL/min (70-130); Calcium 9.1 mg/dL (7.8-10.44); Carbon Dioxide 26 mmol/L (22-29); Chloride 100 mmol/L (98-107); Estimated GFR 90; Glucose 106 mg/dL (70-105); Potassium 3.8 mmol/L (3.5-5.1); Sodium 135 mmol/L (136-145)
[2023-10-11] MEDS ORDERED: Iopamidol-370 76% 500 ML MDV (1 ML CHARGE) ONE (10:35)
[2023-10-11] MEDS ORDERED: Fluconazole In NaCl,Iso-Osm 400 MG in Premix 1 BAG IVPB SCH (13:00)
[2023-10-11] MEDS ORDERED: Enoxaparin 80 MG (0.8 mL) SYRINGE SC SCH ×2 (14:00→21:00)
[2023-10-11] MEDS: Metoclopramide HCl 10 MG (2 mL) VIAL IVP SCH ×2 (14:20→20:21)
[2023-10-11] MEDS: D5 1/2 NS w/20 mEq KCL 1,000 ML IV SCH (17:07)
[2023-10-11] MEDS: Enoxaparin 80 MG (0.8 mL) SYRINGE SC SCH (17:08)
[2023-10-11] MEDS: Ibuprofen 200 MG TAB PO PRN (20:21)
[2023-10-11] MEDS: LevoFLOXacin 750 mg/D5W 750 MG in Premix 1 BAG IVPB SCH (20:26)
[2023-10-12] MEDS: Enoxaparin 80 MG (0.8 mL) SYRINGE SC SCH ×2 (06:03→16:51)
[2023-10-12] MEDS: Amlodipine 10 MG TAB PO SCH (09:19)
[2023-10-12] MEDS: Metoclopramide HCl 10 MG (2 mL) VIAL IVP SCH ×3 (09:20→21:57)
[2023-10-12] MEDS: Fluconazole In NaCl,Iso-Osm 400 MG in Premix 1 BAG IVPB SCH (09:20)
[2023-10-12] MEDS: D5 1/2 NS w/20 mEq KCL 1,000 ML IV SCH ×2 (14:35→22:00)
[2023-10-12] MEDS: Ibuprofen 200 MG TAB PO PRN (16:52)
[2023-10-12] MEDS: LevoFLOXacin 750 mg/D5W 750 MG in Premix 1 BAG IVPB SCH (21:57)
[2023-10-13] MEDS: Enoxaparin 80 MG (0.8 mL) SYRINGE SC SCH ×2 (06:19→17:16)
[2023-10-13] MEDS: Fluconazole In NaCl,Iso-Osm 400 MG in Premix 1 BAG IVPB SCH (08:54)
[2023-10-13] MEDS: Amlodipine 10 MG TAB PO SCH (08:54)
[2023-10-13] MEDS: Metoclopramide HCl 10 MG (2 mL) VIAL IVP SCH ×3 (08:54→21:41)
[2023-10-13] MEDS: Ibuprofen 200 MG TAB PO PRN (12:03)
[2023-10-13] MEDS: D5 1/2 NS w/20 mEq KCL 1,000 ML IV SCH (17:15)
[2023-10-13] MEDS: LevoFLOXacin 750 mg/D5W 750 MG in Premix 1 BAG IVPB SCH (21:41)
[2023-10-14] MEDS: Enoxaparin 80 MG (0.8 mL) SYRINGE SC SCH ×2 (05:53→18:13)
[2023-10-14] MEDS: Metoclopramide HCl 10 MG (2 mL) VIAL IVP SCH (08:20)
[2023-10-14] MEDS: Fluconazole In NaCl,Iso-Osm 400 MG in Premix 1 BAG IVPB SCH (08:20)
[2023-10-14] MEDS: Amlodipine 10 MG TAB PO SCH (08:20)
[2023-10-14] MEDS: Metoclopramide HCl 10 MG TAB PO SCH ×2 (15:18→20:44)
[2023-10-15] MEDS: LevoFLOXacin 500 MG TAB PO SCH (06:41)
[2023-10-15] MEDS: Enoxaparin 80 MG (0.8 mL) SYRINGE SC SCH ×3 (07:57→20:49)
[2023-10-15] MEDS: Amlodipine 10 MG TAB PO SCH (09:16)
[2023-10-15] MEDS: Fluconazole 100 MG TAB PO SCH (09:16)
[2023-10-15] MEDS: Metoclopramide HCl 10 MG TAB PO SCH ×3 (09:16→20:50)
[2023-10-15] MEDS: Ibuprofen 200 MG TAB PO PRN (17:46)
[2023-10-16] MEDS: LevoFLOXacin 500 MG TAB PO SCH (05:14)
[2023-10-16] MEDS: Enoxaparin 80 MG (0.8 mL) SYRINGE SC SCH ×2 (08:24→20:07)
[2023-10-16] MEDS: Amlodipine 10 MG TAB PO SCH (08:24)
[2023-10-16] MEDS: Metoclopramide HCl 10 MG TAB PO SCH ×3 (08:24→21:47)
[2023-10-16] MEDS: Fluconazole 100 MG TAB PO SCH (08:24)
[2023-10-17] MEDS: LevoFLOXacin 500 MG TAB PO SCH (06:42)
[2023-10-17] MEDS: Fluconazole 100 MG TAB PO SCH (08:41)
[2023-10-17] MEDS: Metoclopramide HCl 10 MG TAB PO SCH ×3 (08:41→20:57)
[2023-10-17] MEDS: Enoxaparin 80 MG (0.8 mL) SYRINGE SC SCH ×2 (08:41→20:57)
[2023-10-17] MEDS: Amlodipine 10 MG TAB PO SCH (08:42)
[2023-10-17] MEDS ORDERED: Lansoprazole 15 MG/5 ML (BATCHED)UDCUP PO SCH (09:00)
[2023-10-17] MEDS: Ibuprofen 200 MG TAB PO PRN (12:22)
[2023-10-18] MEDS: LevoFLOXacin 500 MG TAB PO SCH (06:27)
[2023-10-18] MEDS: Metoclopramide HCl 10 MG TAB PO SCH ×2 (08:20→14:40)
[2023-10-18] MEDS: Enoxaparin 80 MG (0.8 mL) SYRINGE SC SCH (08:21)
[2023-10-18] MEDS: Fluconazole 100 MG TAB PO SCH (08:21)
[2023-10-18] MEDS: Amlodipine 10 MG TAB PO SCH ×2 (08:21→08:24)
[2023-10-18] MEDS: Ibuprofen 200 MG TAB PO PRN (10:12)
[2023-10-18 12:29] VITALS: BP 109/74; TEMP 98.8
== END 2023-10-18 16:04 | disposition home or self-care (01) | DRG 862 ==
LOC: SURG B 18:53
PROVIDERS: ADMIT Surgery; ATTEND Surgery
DX: T81.43XA Infection following a procedure, organ and space surgical site, initial encounter (principal); K65.1 Peritoneal abscess; J90 Pleural effusion, not elsewhere classified; K22.2 Esophageal obstruction; Z79.899 Other long term (current) drug therapy; K21.9 Gastro-esophageal reflux disease without esophagitis; Z98.890 Other specified postprocedural states; Z90.81 Acquired absence of spleen; E66.9 Obesity, unspecified; Z68.31 Body mass index [BMI] 31.0-31.9, adult; Y83.8 Other surgical procedures as the cause of abnormal reaction of the patient, or of later complication, without mention of misadventure at the time of the procedure
CPT/HCPCS: 74177; 80048; 85025; J1450; J1650; J1956; J2405; J2765; J3480; Q9967

== ENCOUNTER 2023-11-16 08:36 | Outpatient (CLI) | payer BC | END 2023-11-16 08:37 | disposition home or self-care (01) | LOC: BICCT 08:36 | PROVIDERS: ATTEND Surgery | DX: K44.9 Diaphragmatic hernia without obstruction or gangrene (principal); J90 Pleural effusion, not elsewhere classified; J98.11 Atelectasis; Z90.81 Acquired absence of spleen; Z93.1 Gastrostomy status | CPT/HCPCS: 74176 ==

== ENCOUNTER 2024-05-06 08:55 | Emergency (ER) | payer BC ==
[2024-05-06 10:16] LABS: #Basophils 0.05 10x3/uL (0.0-0.2); %Basophils 0.4 % (0.0-1.0); %Eosinophils 1.8 % (0.0-10.0); %Lymphocytes 11.5 % (21.0-51.0); %Monocytes 11.1 % (0.0-10.0); %Neutrophils 74.8 % (42.0-75.0); Hematocrit 46.8 % (36.0-47.0); Hemoglobin 15.2 g/dL (12.0-16.0); Mean Corpuscular HGB CONC 32.5 g/dL (32.0-36.0); Mean Corpuscular Volume 83.3 fL (78.0-98.0); Platelet Count 631 10x3/uL (130-400); RBC Distribution Width 16.2 % (11.5-14.5); Red Blood Cell (RBC) Count 5.62 mill/uL (4.20-5.40)
[2024-05-06 10:29] LABS: ALT (SGPT) 58 U/L (8-55); AST (SGOT) 25 U/L (5-34); Alkaline Phosphatase 131 U/L (40-110); Anion Gap 13 mmol/L (10-20); BUN (Urea Nitrogen) 22 mg/dL (7.0-18.7); Bilirubin, Total 0.5 mg/dL (0.2-1.2); Calc. Creatinine Clearance 0 mL/min (70-130); Calcium 9.9 mg/dL (7.8-10.44); Carbon Dioxide 18 mmol/L (22-29); Chloride 108 mmol/L (98-107); Estimated GFR 90; Globulin 4.7 g/dL (2.4-3.5); Glucose 94 mg/dL (70-105); Lipase 20 U/L (8-78); Magnesium 1.9 mg/dL (1.6-2.6); Protein, Total 8.7 g/dL (6.0-8.3); Sodium 136 mmol/L (136-145)
[2024-05-06] MEDS ORDERED: Potassium Chloride 20 MEQ TAB ONE (11:23)
[2024-05-06] MEDS ORDERED: Potassium Chloride 20 MEQ (100 mL) BAG ONE (11:26)
[2024-05-06 12:17] LABS: BHCG - Serum Negative (NEGATIVE); Pregs Control Background? CLEAR/WHITE (CLR/WHITE); Pregs Control Bar Appear? YES (CONTROL BAR)
[2024-05-07] LABS: Campy jejuni + coli by PCR Negative (Negative); STEC Shiga Toxin 1+2 Negative (Negative); Salmonella spp. by PCR Negative (Negative); Shigella spp + EIEC by PCR Negative (Negative)
== END 2024-05-06 13:45 | disposition home or self-care (01) ==
LOC: ERS 08:55
DX: A09 Infectious gastroenteritis and colitis, unspecified (principal); E87.6 Hypokalemia
CPT/HCPCS: 74177; 80053; 83690; 83735; 84703; 85025; 87505; 96361; 96365; 96366; J3480